=== PATIENT | female | born 1960 | race Caucasian/White ===

== ENCOUNTER → 2022-11-25 12:58 | Outpatient (POV) | payer BC, SELFPAY ==
[2022-11-25 13:18] VITALS: BP 162/99; PULSE 78; RESP 20; O2SAT 95; BMI 41.0
--- NOTE | 2022-11-25 13:19 | EXP.PAIN.OV ---
HPI Data of Consult Patient: new to practice Consult date: 11/25/22 Requesting Physician: Anabela Zambrano APRN Primary Care Provider: Andrez Avila Consult Narrative Reason for consult: Right knee pain History of present illness: Ms. Cevallos is a 62 year old female who presents today as a new patient. She is a referral from Andrez Avila's office. Today she rates her pain a 5 out of 10. Patient describes her pain as a dull achy sensation that is worse with increased activity or cold wet weather. Patient states this has been going on for years and progressively worsened over time. Patient denies any specific injury or trauma that led to her initial symptoms. Patient states that she has been seeing Dr. Uriel Barnett who did do intra-articular injections however these only lasted approximately a week and then immediately went back to their baseline. Patient states that they did do a series of 3. Patient has had a left total knee arthroplasty in the past and she states that said at the upcoming follow-up he would be ordering x-ray imaging if she continues to have pain. Patient has tried [id number] Tylenol and ibuprofen along with heat and ice and topicals such as IcyHot and Salonpas with no additional relief. Patient is currently prescribed [place] 7.5 mg twice a day from her primary care doctor however she states that she has not been getting as effective relief as she had initially. Patient denies any previous surgery on her right knee or physical therapy. Her Chris is [phone]. Its been reviewed and appropriate. CC: Anabela Zambrano APRN [facility] Disclaimer: The information contained in this section may have been updated after the patient was seen, as this information can be updated by other users. Medical History (Updated 11/25/22 @ 13:38 by Anabela Zambrano APRN) Anxiety HLD (hyperlipidemia) HTN (hypertension) Osteoarthritis Surgical History (Updated 11/25/22 @ 13:23 by Charity Florez RN) H/O total hysterectomy History of laparoscopic appendectomy Hx of total knee arthroplasty Family History (Updated 11/25/22 @ 13:22 by Charity Florez RN) Other No significant family history Social History Smoking Status: Unknown if ever smoked alcohol intake: never current occupational status: other Travel in the last 8 weeks: None Review of Systems Review of Systems Review of systems:: pertinent systems reviewed and negative unless documented below Review of systems (narrative): Review of Systems: General: No recent weight changes, no fever, no sleep disturbances Respiratory: No cough, no shortness of air, no recurring pulmonary infections Cardiovascular/peripheral vascular: No chest pain, no palpitations, no edema, no shortness of breath Gastrointestinal: No new onset incontinence, normal bowel movements reported Genitourinary: No new onset incontinence Musculoskeletal: Right knee pain Psychiatric: [Normal mood/affect] Neurological: [Denies weakness in extremities], [denies balance issues] Meds Home Medications and Allergies Home Medications Medication Instructions Recorded Confirmed Type diclofenac sodium 75 mg 75 mg PO BID Pain 11/25/22 11/25/22 History tablet,delayed release hydrochlorothiazide 25 mg tablet 25 mg PO DAILY fluid retention 11/25/22 11/25/22 History olmesartan 40 mg tablet 40 mg PO DAILY . 11/25/22 11/25/22 History oxybutynin chloride 10 mg 10 mg PO DAILY . 11/25/22 11/25/22 History tablet,extended release 24 hr rosuvastatin 40 mg tablet 40 mg PO DAILY Cholesterol 11/25/22 11/25/22 History New Prescriptions to Start Prescriptions: Allergies Allergy/AdvReac Type Severity Reaction Status Date / Time No Known Drug Allergies Allergy Verified 11/25/22 13:26 Objective Narrative: Physical Exam: General: Alert and oriented x3, no acute distress, pleasant and cooperative Lungs: Respirations even and unlabored, symmetrical chest expansion Eyes: PE
== END ==
PROVIDERS: PCP Pediatrics; Visit Provider Nurse Practitioner Family
DX: M25.561 Pain in right knee (principal); G89.29 Other chronic pain
CPT/HCPCS: 99202; G0463

== ENCOUNTER → 2022-11-25 14:09 | Outpatient (CLI) | payer BC, SELFPAY ==
--- NOTE | 2022-11-25 14:21 | XR_ITS ---
FINAL REPORT CLINICAL HISTORY: RT KNEE PAIN FINDINGS: Right knee Three views were obtained. There is no acute fracture or dislocation. There is severe tricompartment degenerative change, most pronounced in the medial compartment. There is lateral patellar subluxation. No soft tissue abnormality is identified. IMPRESSION: Severe tricompartment degenerative change with lateral patellar subluxation. Reviewed, Interpreted and Dictated by Abril Coppola MD Transcribed by Snow Pablo Authenticated and [facility]
== END ==
PROVIDERS: PCP Pediatrics; Visit Provider Nurse Practitioner Family
DX: M25.561 Pain in right knee (principal)
CPT/HCPCS: 73562

== ENCOUNTER → 2023-01-15 14:47 | Outpatient (POV) | payer BC, SELFPAY ==
--- NOTE | 2023-01-15 14:57 | EXP.PAIN.SOA ---
[facility] Pain Management SOAP Note Subjective:: Patient is a pleasant 62-year-old female who presents today for follow-up of right knee x-ray. We are currently treating the patient for right knee pain. Today she rates her pain a 8 out of 10. Patient denies any new trauma or injury. Patient states she continues to have constipated due to her right bleeding that is worse with ambulation or activity. Patient does state that she has very limited range of motion. Patient has had injective therapy before in this joint however had very minimal relief. Patient states she does have a upcoming appointment with Dr. Green in [place] who did do her left total knee replacement. Patient is currently managed with [place] 7.5 mg twice a day from her primary care doctor and compounding cream from our office. Patient denies any side effects from this medication. She states that the compounding cream does help some however she has also tried hemp cream that did work just as well. Her Chris is [phone]. Its been reviewed and appropriate. Review of Systems: General: No recent weight changes, no fever, no sleep disturbances Respiratory: No cough, no shortness of air, no recurring pulmonary infections Cardiovascular/peripheral vascular: No chest pain, no palpitations, no edema, no shortness of breath Gastrointestinal: No new onset incontinence, normal bowel movements reported Genitourinary: No new onset incontinence Musculoskeletal: Right knee pain Psychiatric: [Normal mood/affect] Neurological: [Denies weakness in extremities], [denies balance issues] Objective:: Physical Exam: General: Alert and oriented x3, no acute distress, pleasant and cooperative Lungs: Respirations even and unlabored, symmetrical chest expansion Eyes: PERRL Musculoskeletal: Flexion and extension of right knee somewhat guarded secondary to pain, [antalgic gait noted] Neurological: Speech clear, no gross sensory deficit FINDINGS: Right knee Three views were obtained. There is no acute fracture or dislocation. There is severe tricompartment degenerative change, most pronounced in the medial compartment. There is lateral patellar subluxation. No soft tissue abnormality is identified. IMPRESSION: Severe tricompartment degenerative change with lateral patellar subluxation. Reviewed, Interpreted and Dictated by Abril Coppola MD Transcribed by Snow Pablo Authenticated and . [facility] Assessment:: Right knee pain, osteoarthritis right knee Plan:: Due to the patient's continued right knee pain and limited range of motion I have highly recommended that she talk to an orthopedic physician regarding possible replacement. I have counseled the patient that we can try other injections however I would like her to see the orthopedic doctor first before proceeding forward. Patient will contact our office for her next follow-up appointment. Patient has been instructed to contact the clinic with any concerns before the next appointment. Dr. Ch has reviewed this note and agrees with this plan of care. This note was dictated using voice recognition software and make contain errors or omissions. [facility] Disclaimer: The information contained in this section may have been updated after the patient was seen, as this information can be updated by other users. Medical History (Updated 11/25/22 @ 13:38 by Anabela Zambrano APRN) Anxiety HLD (hyperlipidemia) HTN (hypertension) Osteoarthritis Surgical History (Updated 11/25/22 @ 13:23 by Charity Florez RN) H/O total hysterectomy History of laparoscopic appendectomy Hx of total knee arthroplasty Family History (Updated 11/25/22 @ 13:22 by Charity Florez RN) Other No significant family history Social History (Updated 11/25/22 @ 13:39 by nAabela Zambrano APRN) Smoking Status: Unknown if ever smoked alcohol intake: never current occupational statu
[2023-01-15 15:33] VITALS: BP 168/100; PULSE 91; RESP 19; O2SAT 95; BMI 40.6
== END ==
PROVIDERS: PCP Pediatrics; Visit Provider Nurse Practitioner Family
DX: M17.11 Unilateral primary osteoarthritis, right knee (principal); M25.561 Pain in right knee
CPT/HCPCS: 99212; G0463

== ENCOUNTER 2023-05-11 15:39 | Inpatient (IN) | payer BC, MEDICARE, SELFPAY ==
[2023-05-11] VITALS (25 sets, daily range): BP systolic 162–264; BP diastolic 48–169; PULSE 60–86; RESP 18–22; TEMP 36.6–37.1; O2SAT 88–96; BMI 40.6; BMI 40.0
--- NOTE | 2023-05-11 15:38 | ECG_ITS ---
APPROVED REPORT Exam: Resting ECG HR:79 bpm ECG Measurements Heart Rate 79 AXES OH 168 P 67 QRSd 105 QRS -17 QT 374 T 72 QTc 408 Conclusion SINUS RHYTHM NONSPECIFIC ST & T-WAVE ABNORMALITY BORDERLINE ECG UNCONFIRMED REPORT Electronically signed by : Mehdi Khan MD 05/12/2023 17:49:31
--- NOTE | 2023-05-11 15:40 | ED_ITS ---
Discharge Plan Disposition Patient Disposition: Admitted Chief Complaint: Shortness of Breath/Dyspnea Clinical Impressions Clinical Impression: Acute non-ST elevation myocardial infarction (NSTEMI), Hypertension Pulmonary embolism Qualifiers: Pulmonary embolism type: other Chronicity: acute Acute cor pulmonale presence: without acute cor pulmonale Qualified Code(s): I26.99 - Other pulmonary embolism without acute cor pulmonale Discharge ED Provider: Davidson Melo General Adult HPI General Chief complaint: Shortness of Breath/Dyspnea Stated complaint: soa Time Seen by Provider: 05/11/23 15:40 History of Present Illness HPI narrative: 62-year-old female with history of hypertension presents with worsening shortness of breath for the last 2 days as well as mild left back thoracic pain. She reports no recent cough or illness or fever. She reports her blood pressure is normally in the 190s systolic. She reports that she has been taking her blood pressure medication as prescribed. She also reports history of volume overload and it is on diuretics. She denies any abdominal pain, headache. Reports that her lower extremity swelling is at baseline. Related Data Home Medications Medication Instructions Recorded Confirmed diclofenac sodium 75 mg 75 mg PO BID Pain 11/25/22 01/15/23 tablet,delayed release hydrochlorothiazide 25 mg tablet 25 mg PO DAILY fluid retention 11/25/22 01/15/23 olmesartan 40 mg tablet 40 mg PO DAILY . 11/25/22 01/15/23 oxybutynin chloride 10 mg 10 mg PO DAILY . 11/25/22 01/15/23 tablet,extended release 24 hr rosuvastatin 40 mg tablet 40 mg PO DAILY Cholesterol 11/25/22 01/15/23 Allergies Allergy/AdvReac Type Severity Reaction Status Date / Time No Known Drug Allergies Allergy Verified 11/25/22 13:26 [facility] Disclaimer: The information contained in this section may have been updated after the patient was seen, as this information can be updated by other users. Medical History (Updated 05/11/23 @ 18:39 by Davidson Melo MD) Anxiety HLD (hyperlipidemia) HTN (hypertension) Osteoarthritis Surgical History (Updated 11/25/22 @ 13:23 by Charity Florez RN) H/O total hysterectomy History of laparoscopic appendectomy Hx of total knee arthroplasty Family History (Updated 11/25/22 @ 13:22 by Charity Florez RN) Other No significant family history Social History (Updated 11/25/22 @ 13:39 by Anabela Zambrano APRN) Smoking Status: Never smoker alcohol intake: never current occupational status: disabled Travel in the last 8 weeks: None ROS Obtained: Yes All systems reviewed & no additional complaints except as documented Physical Exam General General appearance: alert and in distress Comment: Sitting up in bed, unable to lay down, tachypneic, Head Head exam: atraumatic and normocephalic Eye Eye exam: Present normal appearance, PERRL and EOMI ENT ENT exam: Present normal oropharynx and normal external ear exam Neck Neck exam: Present normal inspection and full ROM Chest Chest inspection: Present normal inspection and symmetric chest wall rise; Absent tenderness Respiratory Respiratory exam: Present respiratory distress, accessory muscle use and other (decreased breath sounds in all lung owen, may be due to habitus, no significant wheezing or crackles) Cardiovascular Cardiovascular exam: Present regular rate and normal rhythm Abdominal Exam Abdominal exam: Present soft; Absent distention, tenderness or guarding Extremities Exam Extremities exam: Present normal inspection and edema (Pitting bilateral edema of the lower extremities); Absent joint swelling Back Exam Back exam: Present normal inspection; Absent tenderness Neurological Exam Neurological exam: Present alert and oriented X3; Absent motor sensory deficit Psychiatric Psychiatric exam: Present normal affect and normal mood Skin Skin exam: Present warm, dry and normal color Lymphatic Lymphatic Findings: no adenopathy Medical Decision Making Medical Records Medical records reviewed: Yes I reviewed the patient's medical records. Chris Inquiry Pt receiving controlled substance: No Chris was queried for this patient: No Vital Signs: 05/11/23 15:39 05/11/23 16:30 05/11/23 16:39 Temperature 98.0 F Temperature Source Oral Pulse Rate 83 81 Pulse Rate [Left Radial] 80 Respiratory Rate 22 20 20 Blood Pressure 175/129 H 198/128 H Blood Pressure [Right Arm] 264/169 H Blood Pressure Mean 146 151 Blood Pressure Mean [Right Arm] 200 02 Sat by Pulse Oximetry 94 L 93 L 94 L Oxygen Delivery Method Room Air Oxygen Flow Rate (LPM) 05/11/23 17:01 05/11/23 17:10 05/11/23 17:20 Temperature Temperature Source Pulse Rate 62 79 Pulse Rate [Left Radial] Respiratory Rate Blood Pressure 217/130 H 189/130 H 204/141 H Blood Pressure [Right Arm] Blood Pressure Mean 150 145 158 Blood Pressure Mean [Right Arm] 02 Sat by Pulse Oximetry 89 L 89 L 92 L Oxygen Delivery Method Nasal Cannula Nasal Cannula Nasal Cannula Oxygen Flow Rate (LPM) 2 2 2 05/11/23 17:34 05/11/23 17:40 05/11/23 17:50 Temperature Temperature Source Pulse Rate 86 72 77 Pulse Rate [Left Radial] Respiratory Rate Blood Pressure 218/138 H 212/146 H 205/138 H Blood Pressure [Right Arm] Blood Pressure Mean Blood Pressure Mean [Right Arm] 02 Sat by Pulse Oximetry 92 L 95 95 Oxygen Delivery Method Nasal Cannula Nasal Cannula Nasal Cannula Oxygen Flow Rate (LPM) 2 2 2 05/11/23 18:00 05/11/23 18:10 05/11/23 18:20 Temperature Temperature Source Pulse Rate 77 79 72 Pulse Rate [Left Radial] Respiratory Rate Blood Pressure 201/48 H 212/139 H 212/142 H Blood Pressure [Right Arm] Blood Pressure Mean Blood Pressure Mean [Right Arm] 02 Sat by Pulse Oximetry 96 94 L 94 L Oxygen Delivery Method Nasal Cannula Nasal Cannula Nasal Cannula Oxygen Flow Rate (LPM) 2 2 2 Lab Data Lab results reviewed: Yes I reviewed the patient's lab results. Lab Results 05/11/23 15:49: WBC 13.5 H, RBC 4.47, Hgb 12.6, Hct 37.7, MCV 84.3, MCH 28.3, MCHC 33.6, RDW 15.1, Plt Count 246, MPV 7.9, Neut % (Auto) 83.5 H, Lymph % (Auto) 10.6, [facility] % (Auto) 4.6, Eos % (Auto) 1.0, Baso % (Auto) 0.4, Neut # (Auto) 11.3 H, Lymph # (Auto) 1.4, [facility] # (Auto) 0.6, Eos # (Auto) 0.1, Baso # (Auto) 0.1, D-Dimer 2.68 H, Sodium 137, Potassium 3.7, Chloride 106, Carbon Dioxide 28, Anion Gap 6.7, BUN 19 H, Creatinine 1.30 H, Estimated Creat Clear 89, Estimated GFR 42 L, Est GFR ( Amer) 50 L, Glucose 122 H, Lactate 0.9, Calcium 9.6, Magnesium 2.0, Total Bilirubin 0.8, AST 29, ALT 22, Alkaline Phosphatase 161 H, Troponin I 0.05 H, NT-Pro-B Natriuret Pep 592 H, Total Prote in 8.0, Albumin 4.1, Globulin 3.9 H, Albumin/Globulin Ratio 1.1, TSH 1.42, Th yroxine (T4) 10.8 05/11/23 15:59: VBG pH 7.36, VBG pCO2 40.7, VBG pO2 37.1, VBG HCO3 22.3 L, VBG Total CO2 23.6, VBG O2 Saturation 70.9 H, VBG Base Excess -3.2 L 05/11/23 16:05: SARS-CoV-2 (PCR) Not detected, Influenza A Untype (PCR) Not detected, Influenza Type B (PCR) Not detected 05/11/23 15:49 05/11/23 15:49 Orders (Tests/Meds): ED MEDICATIONS Generic Name Dose Route Start Last Admin Trade Name Freq PRN Reason Stop Dose Admin Enoxaparin Sodium 125 mg 05/11/23 17:00 05/11/23 17:20 Enoxaparin 100mg/Ml Syringe 1 mg/kg (125 mg) 06/10/23 16:59 125 mg SQ Administration Q12H TAMIKO Nitroglycerin 0.4 mg 05/11/23 15:57 05/11/23 16:38 Nitroglycerin 0.4mg Sl Tablet SL 06/10/23 15:56 0.4 mg Q5MINP PRN Administration Chest Pain Sodium Chloride 10 ml 05/11/23 16:52 05/11/23 16:52 Sodium Chloride 0.9% 10ml Syr (Rad Only) IV 06/10/23 16:51 10 ml NEEDED PRN Administration Maintain IV Site Discontinued Medications Generic Name Dose Route Start Last Admin Trade Name Freq PRN Reason Stop Dose Admin Furosemide 80 mg 05/11/23 16:04 05/11/23 16:38 Furosemide 40mg/4ml Vial IV 05/11/23 16:05 80 mg ONCE ONE Administration Iopamidol 100 ml 05/11/23 16:52 05/11/23 16:53 Iopamidol-370 (76%);100ml Bottle IV 05/11/23 16:53 100 ml ONCE ONE Administration Ondansetron HCl 4 mg 05/11/23 17:01 05/11/23 17:02 Ondansetron 4mg/2ml Vial IV 05/11/23 17:02 4 mg ONCE ONE Administration Sodium Chloride 50 ml 05/11/23 16:52 05/11/23 16:53 0.9 % Sodium Chloride 50 Ml Vial IV 05/11/23 16:53 50 ml ONCE ONE Administration ORDERS Category Date Time Status CTA Chest [CT angio chest - dissection] Stat Cat Scan 05/11/23 16:35 Completed Cardiology Consult [Consult to Cardiology] [CONS] Cons 05/11/23 17:22 Active Routine CXR --portable [XR chest portable] Stat Exams 05/11/23 15:58 Completed BNP [Brain Natriuretic Peptide] Stat Lab 05/11/23 15:49 Completed CBC w/Auto Diff [Complete Blood Count Auto Diff] Stat Lab 05/11/23 15:49 Completed CMP [Comprehensive Metabolic Panel] Stat Lab 05/11/23 15:49 Completed D-Dimer Stat Lab 05/11/23 15:49 Completed Lactic Acid Stat Lab 05/11/23 15:49 Completed Magnesium Stat Lab 05/11/23 15:49 Completed Rapid PCR Covid and Flu A/B Stat Lab 05/11/23 16:05 Completed T4 (Thyroxine) Stat Lab 05/11/23 15:49 Completed TSH [Thyroid Stimulating Hormone] Stat Lab 05/11/23 15:49 Completed Troponin I Q3H Lab 05/11/23 15:49 Completed Troponin I Q3H Lab 05/11/23 19:00 Ordered VBG [Venous Blood Gas] Stat RT 05/11/23 15:59 Completed ECG Data Tracing #1: I reviewed this ECG and interpreted as documented below: Sinus rhythm, rate of 79, no significant ST changes, baseline artifact limits interpretation, possible U wave noted. ECG initial impression date: 05/11/23 ECG initial impression time: 15:40 HEART Score History (anamnesis): Slightly suspicious ECG: Non-specific disturbance Age: 45-65 years Risk factors: 1-2 risk factors Troponin: 1-3x normal limit HEART Score: 4 Medical Decision Narrative: 62-year-old female with history of hypertension hyperlipidemia presents with significant shortness of breath for the last 2 days. Patient severely hypertensive on arrival. History was obtained via conversation with patient, family. On arrival, patient is afebrile, hypertensive with systolics greater than 220, diastolics greater than 150 on manual, satting low 90s on room air moving all extremities spontaneously. Full physical exam performed and significant for diminished breath sounds in all lung owen, bilateral lower extremity pitting edema Differential includes but is not limited to acute decompensated heart failure, dissection, PE, COPD, pneumothorax, pneumonia. History and exam is concerning for acute decompensated heart failure secondary to hypertension Patient was given IV Lasix, p.o. nitroglycerin with improvement in shortness of breath and hypertension. For symptomatic management and correction of underlying abnormalities. Workup initiated including CBC CMP lactate troponin EKG chest x-ray D-dimer. Patient placed on monitoring tech. Bedside ultrasound performed, significant for faint B-lines in all lung owen, trace pleural effusion bilaterally, epicardial fat versus small pericardial effusion. Echo largely obscured by habitus, though EF appears grossly normal and no obvious right heart strain. On re-evaluation, patient remains hypertensive with systolics in the 190s, now satting high 80s, requiring nasal cannula oxygen to maintain sats greater than 90. On my interpretation of monitoring tech, patient dakota in sinus rhythm in the 80s. Laboratory workup independently interpreted by me and significant for elevated D-dimer at 2.6, elevated troponin at 0.05 white count 13.5, creatinine 1.3, no baseline, BNP minimally elevated at 590. CTA chest ordered Imaging independently interpreted by me and significant for chest x-ray with patchy bilateral lung base opacities, unclear etiology. CTA chest shows diffuse bilateral segmental and subsegmental PEs without acute right heart strain.. See radiology read for full review of final results. I had an interactive discussion with radiology regarding these results. EKG independently interpreted by me and significant as above. Given patient history, exam and workup, patient's presentation most likely represents submassive acute pulmonary embolism without right heart strain, though patient does have resultant NSTEMI with initially elevated troponin. Interactive discussion had with cardiology, she does not need emergent catheterization at this time, will proceed with Lovenox 1 mg/kg twice daily and continued reassessment. Interactive discussion had with hospitalist on-call for admission. Procedures Risk/Benefits of Procedure(s) Were Explained: Yes Limited Ultrasound Indication:: Limited cardiac ultrasound Indication: Chest pain shortness of breath Views Obtained: PLAX, PSAX, Apical 4-chamber, Subxiphoid Findings: Views obscured by body habitus, small pericardial effusion versus epicardial fat. No obvious right heart strain, grossly normal EF. Impression: Views obscured by body habitus, small pericardial effusion versus epicardial fat. No obvious right heart strain, grossly normal EF. Images were saved to permanent archive The study was technically adequate This study was performed by me, and I personally interpreted all images/videos. Limited lung ultrasound A focused ultrasound exam of the pleural spaces was performed to evaluate for pneumothorax, pulmonary edema, pleural effusion and/or consolidation. The ultrasound was performed with the following indications, as noted in the H&P: Shortness of breath Identified structures: Bilateral thoracic cavities were examined. Findings: Lung sliding: -Present bilateral B-lines: -Present intermittently in all lung owen Pleural effusion: -Bilateral, trace Consolidation: -Absent bilaterally Impression: Small bilateral pleural effusions with minimal B-lines throughout lung owen, no obvious consolidation, no pneumothorax Images were saved to permanent archive The study was technically technically adequate CPT 73934-14 This study was performed by in, and I personally interpreted all images/videos. Based on my clinical judgement, these images were adequate and did not necessitate further imaging. Critical Care Critical Care Time Critical Care Time: Yes Attestation: On 05/11/23, the high probability of a clinically significant, sudden or life threatening deterioration of the following system(s) cardiac, respiratory required my full and direct attention, intervention and personal management. The time I documented below is in addition to time spent performing reported procedures but includes the following listed in this critical care notation. Total Time Total Critical Care Time: 70
--- NOTE | 2023-05-11 15:58 | XR_ITS ---
PROCEDURE INFORMATION: Exam: XR Chest Exam date and time: 05/11/2023 4:00 PM Age: 62 years old Clinical indication: Shortness of breath; Additional info: SOB TECHNIQUE: Imaging protocol: Radiologic exam of the chest. Views: 1 view. COMPARISON: No relevant prior studies available. FINDINGS: Lungs: Patchy ground-glass opacities project over the lung bases. Pleural spaces: No significant pleural effusion. No pneumothorax. Heart/Mediastinum: Mildly enlarged cardiac silhouette. Apparent mediastinal widening is most likely due to patient rotation. Bones/joints: No evidence of acute osseous abnormality. IMPRESSION: 1. Patchy ground-glass opacities project over the lung bases. 2. Mildly enlarged cardiac silhouette.
[2023-05-11] MEDS: NITROGLYCERIN 0.4MG SL TABLET 0.400000000000000022 MG SL ×2 (16:05→16:38)
[2023-05-11 16:08] LABS: Basophils # 0.1 K/mm3 (0-0.2); Basophils % 0.4 % (0.1-2.0); Eosinophils # 0.1 K/mm3 (0.0-0.4); Hematocrit 37.7 % (37.0-47.0); Hemoglobin 12.6 g/dL (12.2-16.2); Lymphocytes # 1.4 K/mm3 (0.7-4.5); Lymphocytes % 10.6 % (10-50); Mean Corpuscular HGB Conc 33.6 g/dL (31.8-35.4); Mean Corpuscular Hemoglobin 28.3 pg (27.0-31.2); Mean Corpuscular Volume 84.3 fl (81-99); Mean Platelet Volume 7.9 fl (7.4-10.4); Monocytes # 0.6 K/mm3 (0.1-1.0); Monocytes % 4.6 % (1.7-9.3); Neutrophils # 11.3 K/mm3 (1.8-7.8); Neutrophils % 83.5 % (37.0-80.0); Platelet Count 246 K/mm3 (142-424); Red Blood Count 4.47 M/mm3 (4.20-5.40); Red Cell Distribution Width 15.1 % (11.5-17.5); White Blood Count 13.5 K/mm3 (4.8-10.8)
[2023-05-11 16:08] LABS: VBG Base Excess -3.2 mmol/L (-2.4-2.3); VBG HCO3 22.3 mmol/L (23-30); VBG Oxygen Saturation 70.9 % (50-70); VBG PCO2 40.7 mmol/L (35-51); VBG PH 7.36 mmol/L (7.31-7.41); VBG PO2 37.1 mmol/L (28-40); VBG Total CO2 23.6 mmol/L (23-27)
[2023-05-11 16:12] LABS: Coronavirus 19, PCR Not Detected (NotDetected); Influenza A, PCR Not Detected (NotDetected); Influenza B, PCR Not Detected (NotDetected)
[2023-05-11 16:16] LABS: Alanine Aminotransferase 22 U/L (12-78); Albumin Level 4.1 g/dl (3.5-5.0); Albumin/Globulin Ratio 1.1 (1.1-1.8); Alkaline Phosphatase 161 U/L (38-126); Anion Gap 6.7 mEq/L (5-15); Aspartate Amino Transferase 29 U/L (14-36); Bilirubin,Total 0.8 mg/dl (0.2-1.3); Blood Urea Nitrogen 19 mg/dl (7-17); Calcium 9.6 mg/dl (8.4-10.2); Carbon Dioxide 28 mmol/L (22.0-30.0); Chloride 106 mmol/L (98-107); Creatinine Clearance Estimated 89 mL/min (50-200); Estimated Glomerular Filt Rate 42 ml/min (>60); GFR (African American) 50 ML/MIN (>60); Globulin 3.9 g/dL (1.3-3.2); Glucose 122 mg/dl (74-100); Potassium 3.7 mmoL/L (3.5-5.1); Sodium 137 mmol/L (136-145)
[2023-05-11 16:17] LABS: Lactic Acid 0.9 mmol/L (0.7-2.1)
[2023-05-11 16:21] LABS: D-Dimer 2.68 ug/mL (0.0-0.5)
[2023-05-11 16:30] LABS: Troponin I 0.05 ng/ml (0.00-0.034)
[2023-05-11 16:35] LABS: T4 (Thyroxine) 10.8 ug/dl (5.53-11.0)
--- NOTE | 2023-05-11 16:35 | CT_ITS ---
PROCEDURE INFORMATION: Exam: CTA Chest With Contrast Exam date and time: 05/11/2023 4:48 PM Age: 62 years old Clinical indication: Other: Hypertension; Other: Left back pain; Additional info: Hypertension, left back pain, elevated dimer TECHNIQUE: Imaging protocol: Computed tomographic angiography of the chest with contrast. Exam focused on the arteries. 3D rendering (Not supervised by radiologist): MIP and/or 3D reconstructed images were created by the technologist. Radiation optimization: All CT scans at this facility use at least one of these dose optimization techniques: automated exposure control; mA and/or kV adjustment per patient size (includes targeted exams where dose is matched to clinical indication); or iterative reconstruction. Contrast material: ISOVUE; Contrast volume: 100 ml; Contrast route: INTRAVENOUS (IV); COMPARISON: CR XR CHEST PORTABLE 05/11/2023 4:00 PM FINDINGS: Pulmonary arteries: Multiple bilateral segmental and subsegmental pulmonary emboli. Aorta: Fusiform aneurysmal dilation of the ascending aorta, measuring 4.2 cm in diameter. Lungs: Bibasal subsegmental atelectasis/scarring. No evidence of acute airspace infiltrate or congestive pulmonary edema. Pleural spaces: No pneumothorax. No pleural effusion. Heart: Biatrial enlargement suggestive of diastolic heart dysfunction. No significant pericardial effusion. Heart RV/LV ratio: RV/LV ratio is within normal limits measuring 0.91. Coronary arteries: Calcific coronary artery disease. Lymph nodes: Calcified lymph nodes consistent with chronic sequelae of prior granulomatous disease. Intraperitoneal space: No emergent findings or suspicious mass lesions in the partially visualized upper abdomen. Bones/joints: Multi-level bridging disc osteophytes throughout the thoracic spine compatible with diffuse idiopathic skeletal hyperostosis (DISH). No evidence of acute osseous abnormality. Soft tissues: Unremarkable. IMPRESSION: 1. Multiple bilateral segmental and subsegmental pulmonary emboli. No CT evidence of right heart strain or pulmonary infarct. 2. Biatrial enlargement suggestive of diastolic heart dysfunction. 3. Fusiform aneurysmal dilation of the ascending aorta, measuring 4.2 cm in diameter. 4. Diffuse idiopathic skeletal hyperostosis (DISH). 5. Calcific coronary artery disease.
[2023-05-11 16:37] LABS: NT Pro Brain Natriuretic Pep. 592 pg/mL (0-125)
[2023-05-11] MEDS: FUROSEMIDE 40MG/4ML VIAL 80 MG IV (16:38)
[2023-05-11 16:49] LABS: Thyroid Stimulating Hormone 1.42 uIU/mL (0.465-4.68)
[2023-05-11] MEDS: SODIUM CHLORIDE 0.9% 10ML SYR (RAD ONLY) 10 ML IV (16:52)
[2023-05-11] MEDS: 0.9 % SODIUM CHLORIDE 50 ML VIAL IV (16:53)
[2023-05-11] MEDS: IOPAMIDOL-370 (76%);100ML BOTTLE 100 ML IV (16:53)
[2023-05-11] MEDS: ONDANSETRON 4MG/2ML VIAL 4 MG IV (17:02)
--- NOTE | 2023-05-11 17:02 | PC.NURSE ---
Dr Melo spoke with Cardiology
[2023-05-11] MEDS: ENOXAPARIN 100MG/ML SYRINGE 125 MG SQ (17:20)
--- NOTE | 2023-05-11 17:23 | PC.NURSE ---
call made to transfer and pumphouse operator for bed placement
--- NOTE | 2023-05-11 18:15 | PC.NURSE ---
seizure pads placed on pts bed
--- NOTE | 2023-05-11 18:36 | PC.NURSE ---
Helped pt to restroom via wheelchair
--- NOTE | 2023-05-11 18:40 | PC.NURSE ---
Helped pt back to room she wanted to stay in the wheelchair she will be going to her room on second floor after 19:00 call light and visitor at
[2023-05-11] MEDS: hydroCHLOROthiazide 25MG TABLET 25 MG PO (19:01)
[2023-05-11] MEDS: IRBESARTAN 300MG TABLET 300 MG PO (19:03)
[2023-05-11] MEDS: HYDRALAZINE 10MG TABLET 10 MG PO (20:21)
--- NOTE | 2023-05-11 20:27 | PC.NURSE ---
during admission patient request DNR and is a/ox4 and able to make own decisions. upon reentering the room, the pts mother said her isn't going to like that, can he change it tomorrow? pt mother was educated patient is able to make her own decisions and has chose DNR - paperwork was signed per patient
[2023-05-11 20:34] LABS: Troponin I 0.05 ng/ml (0.00-0.034)
[2023-05-11] MEDS: LABETALOL 5MG/ML 20ML MDV 20 MG IV (20:49)
--- NOTE | 2023-05-11 23:07 | P.HP_ITS ---
History of Present Illness *Admission Date: 05/11/23 *Reason for visit:: Shortness of breath *History of present illness: This is a 62-year-old female with a past medical history of hyper arthritis who presents to the emergency department today with shortness of breath. She also reports mid left thoracic back pain just underneath her scapula as well. She denies any cough or fever. She states that she has hypertension that is uncontrolled. Her systolic blood pressure is normally in the 190s. She reports that she been taking her blood pressure medicine as prescribed but never sees improvement. She also complains of bilateral lower extremity edema without pain. States that she has been on HCTZ without any changes. She denies any worsening of her bilateral lower extremities. Denies any extensive plane rides, car rides. Denies any coagulation defects or family history of. Emergency department workup significant for hypertensive urgency with systolic blood pressure in the 200s. Elevated D-dimer. Mildly elevated troponin 0.05. Elevated BNP of 592. CT scan of the chest notable for multiple bilateral segmental and subsegmental pulmonary emboli with no CT evidence of heart strain. Bilateral atrial enlargement suggestive of diastolic dysfunction. Mild fusiform aneurysmal dilatation of the ascending aorta measuring 4.2 cm. Cardiology consulted and will see patient in AM. Patient was given IV Lasix, labetalol and therapeutic Lovenox admitted to hospital service for further evaluation management [facility] Disclaimer: The information contained in this section may have been updated after the patient was seen, as this information can be updated by other users. Medical History (Updated 05/11/23 @ 23:22 by GINA Felipe) Anxiety HLD (hyperlipidemia) HTN (hypertension) Osteoarthritis Surgical History H/O total hysterectomy History of laparoscopic appendectomy Hx of total knee arthroplasty Family History Other No significant family history Social History Smoking Status: Never smoker alcohol intake: never current occupational status: disabled Travel in the last 8 weeks: None Review of Systems Review of Systems Review of systems:: pertinent systems reviewed and negative unless documented below Meds Home Medications and Allergies Home Medications Medication Instructions Recorded Confirmed Type hydrochlorothiazide 25 mg tablet 25 mg PO DAILY 11/25/22 05/11/23 History olmesartan 40 mg tablet 40 mg PO DAILY 11/25/22 05/11/23 History oxybutynin chloride 10 mg 10 mg PO DAILY 11/25/22 05/11/23 History tablet,extended release 24 hr rosuvastatin 40 mg tablet 40 mg PO DAILY 11/25/22 05/11/23 History New Prescriptions to Start Prescriptions: Allergies Allergy/AdvReac Type Severity Reaction Status Date / Time No Known Drug Allergies Allergy Verified 11/25/22 13:26 Exam Data for Last 24 hours Vital signs and Labs for Last 24 Hours: Temp Pulse Resp BP Pulse Ox O2 Del Method O2 Flow Rate 98.6 F 76 18 191/133 H 94 L Nasal Cannula 2 05/11/23 20:14 05/11/23 20:14 05/11/23 20:14 05/11/23 21:19 05/11/23 22:21 05/11/23 22:21 05/11/23 22:21 Laboratory Results - last 24 hr 05/11/23 15:49: WBC 13.5 H, RBC 4.47, Hgb 12.6, Hct 37.7, MCV 84.3, MCH 28.3, MCHC 33.6, RDW 15.1, Plt Count 246, MPV 7.9, Neut % (Auto) 83.5 H, Lymph % (Auto) 10.6, [place] % (Auto) 4.6, Eos % (Auto) 1.0, Baso % (Auto) 0.4, Neut # (Auto) 11.3 H, Lymph # (Auto) 1.4, [place] # (Auto) 0.6, Eos # (Auto) 0.1, Baso # (Auto) 0.1, D-Dimer 2.68 H, Sodium 137, Potassium 3.7, Chloride 106, Carbon Dioxide 28, Anion Gap 6.7, BUN 19 H, Creatinine 1.30 H, Estimated Creat Clear 89, Estimated GFR 42 L, Est GFR ( Amer) 50 L, Glucose 122 H, Lactate 0.9, Calcium 9.6, Magnesium 2.0, Total Bilirubin 0.8, AST 29, ALT 22, Alkaline Phosphatase 161 H, Troponin I 0.05 H, NT-Pro-B Natriuret Pep 592 H, Total Protein 8.0, Albumin 4.1, Globulin 3.9 H, Albumin/Globulin Ratio 1.1, TSH 1.42, Thyroxine (T4) 10.8 05/11/23 15:59: VBG pH 7.36, VBG pCO2 40.7, VBG pO2 37.1, VBG HCO3 22.3 L, VBG Total CO2 23.6, VBG O2 Saturation 70.9 H, VBG Base Excess -3.2 L 05/11/23 16:05: SARS-CoV-2 (PCR) Not detected, Influenza A Untype (PCR) Not detected, Influenza Type B (PCR) Not detected 05/11/23 19:50: Troponin I 0.05 H I & O for Last 24 hours: Intake & Output 05/08/23 05/09/23 05/10/23 05/11/23 23:59 23:59 23:59 23:59 Output Total 0 / 0 Balance 0 / 0 Weight 122.527 kg Constitutional Constitutional: no acute distress and morbidly obese *Routine HEENT Exam Head: Present normocephalic and atraumatic Eye: Present EOMI, PERRL and normal accommodation ENT: Present mucous membranes moist *Routine Neck Exam Neck: Present supple; Absent lymphadenopathy *Routine Respiratory Exam Respiratory: Present normal respiratory effort Comments: Currently requiring 2 L nasal cannula *Routine Cardiovascular Exam Cardiovascular: Present RRR, Normal S1 and Normal S2 Comments: Bilateral lower extremity edema +1 pitting *Routine Abdominal Exam Abdominal: Present soft and normoactive bowel sounds; Absent tenderness *Routine Rectal Exam Rectal:: deferred *Routine Genitalia Exam Genitalia:: deferred *Routine Extremities Exam Extremities: Absent cyanosis, clubbing or edema *Routine Skin Exam Skin: Present warm; Absent rash *Routine Neurological Exam Neurological: Present alert and oriented X3 Assessment and Plan *Assessment and plan (1) Pulmonary embolism: Status: Acute Qualifiers: Acute cor pulmonale presence: without acute cor pulmonale Chronicity: acute Pulmonary embolism type: other Qualified Code(s): I26.99 - Other pulmonary embolism without acute cor pulmonale Category: Medical Code(s): I26.99 - Other pulmonary embolism without acute cor pulmonale (2) Acute non-ST elevation myocardial infarction (NSTEMI): Status: Acute Category: Medical Code(s): I21.4 - Non-ST elevation (NSTEMI) myocardial infarction (3) Hypertensive urgency: Status: Acute Category: Medical Code(s): I16.0 - Hypertensive urgency (4) NOELLE (acute kidney injury): Status: Acute Category: Medical Code(s): N17.9 - Acute kidney failure, unspecified (5) Heart failure, unspecified: Status: Acute Category: Medical Code(s): I50.9 - Heart failure, unspecified Plan Pulmonary embolism Consult cardiology, appreciate recommendations Continue therapeutic Lovenox N.p.o. for possible cardiac intervention in a.m. Hypertensive urgency Restart patient's home medications and will uptitrate as necessary Continue labetalol as needed Patient reports home systolic blood pressure around 190. Patient does have fusiform aneurysmal dilatation of the ascending aorta. Will strive for blood pressure below 160. NOELLE Avoid nephrotoxic medications. Did receive Lasix. Will require this for mild volume overload Avoid further nephrotoxic medications if able Monitor renal function Heart failure unspecified Symptomatic with bilateral lower extremity edema, elevated BNP and bilateral atrial enlargement suggestive of diastolic dysfunction Received Lasix 80 mg IV in the emergency department Will continue Lasix IV on admission Formal echocardiogram in a.m. NSTEMI Likely secondary to demand given PE and hypertension Cardiac risk markers Will get A1c and lipid panel in a.m. Cardiology consulted DVT PPx ThLovenox DNR but okay with Intubation Attending attestation Patient was seen and evaluated at the bedside myself, agree with VP PATIENT note.
[2023-05-12] VITALS (9 sets, daily range): BP systolic 143–188; BP diastolic 90–128; PULSE 70–93; RESP 18–20; TEMP 37.1–37.6; O2SAT 91–94; BMI 40.0
[2023-05-12] MEDS: NITROGLYCERIN 1 GM OINTMENT TD ×2 (00:29→07:02)
--- NOTE | 2023-05-12 00:46 | PC.NURSE ---
pt has had some issues with hypertension t/o shift - between 190s/170s SBP. see mar for tx. REPORTER aware, pt is not symptomatic and says 190s SBP is her baseline.
[2023-05-12] MEDS: LABETALOL 5MG/ML 20ML MDV 20 MG IV (06:47)
[2023-05-12] MEDS: ENOXAPARIN 150MG/ML SYRINGE 125 MG SQ ×2 (08:35→20:16)
[2023-05-12] MEDS: IRBESARTAN 300MG TABLET 300 MG PO (08:37)
[2023-05-12] MEDS: hydroCHLOROthiazide 25MG TABLET 25 MG PO (08:37)
[2023-05-12 08:59] LABS: Basophils % 0.4 % (0.1-2.0); Eosinophils # 0.1 K/mm3 (0.0-0.4); Eosinophils % 1.1 % (0.1-12.0); Hematocrit 34.4 % (37.0-47.0); Hemoglobin 11.7 g/dL (12.2-16.2); Lymphocytes # 1.6 K/mm3 (0.7-4.5); Lymphocytes % 13.9 % (10-50); Mean Corpuscular Volume 85.1 fl (81-99); Mean Platelet Volume 8.4 fl (7.4-10.4); Monocytes # 0.7 K/mm3 (0.1-1.0); Monocytes % 6.2 % (1.7-9.3); Neutrophils % 78.4 % (37.0-80.0); Platelet Count 244 K/mm3 (142-424); Red Blood Count 4.04 M/mm3 (4.20-5.40); White Blood Count 11.5 K/mm3 (4.8-10.8)
[2023-05-12 09:10] LABS: Hemoglobin A1C 5.5 % (4.0-6.0)
[2023-05-12 09:22] LABS: Chloride 104 mmol/L (98-107); Potassium 3.4 mmoL/L (3.5-5.1); Sodium 141 mmol/L (136-145)
[2023-05-12 09:24] LABS: Alanine Aminotransferase 21 U/L (12-78); Aspartate Amino Transferase 28 U/L (14-36); Blood Urea Nitrogen 22 mg/dl (7-17); Creatinine Clearance Estimated 76 mL/min (50-200); Estimated Glomerular Filt Rate 35 ml/min (>60); GFR (African American) 43 ML/MIN (>60)
[2023-05-12 09:25] LABS: Albumin Level 3.9 g/dl (3.5-5.0); Albumin/Globulin Ratio 1.1 (1.1-1.8); Alkaline Phosphatase 154 U/L (38-126); Anion Gap 13.4 mEq/L (5-15); Bilirubin,Total 0.8 mg/dl (0.2-1.3); Calcium 9.5 mg/dl (8.4-10.2); Carbon Dioxide 27 mmol/L (22.0-30.0); Chol/HDL Ratio 7.5 (1-3.5); Cholesterol 263 mg/dl (140-200); Globulin 3.6 g/dL (1.3-3.2); Glucose 106 mg/dl (74-100); HDL Cholesterol 35 mg/dl (40-60); Magnesium 2.1 mg/dl (1.6-2.3); Total Protein,Serum 7.5 g/dl (6.3-8.2); Triglycerides 212 mg/dl (30-150); VLDL Cholesterol 42 mg/dL (0-40)
--- NOTE | 2023-05-12 09:28 | CA_ITS ---
APPROVED REPORT EXAM: Comprehensive 2D, Doppler, and color-flow Echocardiogram Asset Analyst: Mary Ellen Vuong CRT Ht: 5 ft 8 in Wt: 270lbs BSA: 2.32 BP: 212/142 mmHg Indications: PE,HTN Crisis, HLD, CP, edema, SOB, NSTEMI TDE pt up in bed due to SOB and body habitus 2D Dimensions LA Volume 53.10 mL LA Volume Index 22.30 mL/m2 (M/F) 16-34 M-Mode Dimensions RVDd 2.55 cm (0.9-2.6) LA Diam 4.66 cm (1.9-4.0) LVDd 5.01 cm (3.5-5.7) LVDs 3.49 cm (3.5-5.7) IVSd 2.15 cm (0.6-1.1) PWd 0.94 cm (0.6-1.1) EF (Teich) 57.50% FS 30.30% EDV (Teich) 118.80 mL TAPSE 1.99 (<1.7) ESV (Teich) 50.50 mL LV Diastology E Decel Time 190 (160-240 msec) E/A Ratio 0.80 MED A' 8.40 cm/s LAT A' 7.50 cm/s Aortic Valve AO Peak GR. 4.40 mmHg Mitral Valve MV E Max Vincenzo. 54.0 (40-130 cm/s) MV A Velocity 67.0 (40-130 cm/s) E/A Ratio 0.80 MV PHT 56.0 ms Pulmonary Valve PV Peak Velocity 127.0 (50-150 cm/s) Tricuspid Valve TR P. Velocity 148.00 cm/s Left Ventricle The left ventricle is normal size. The left ventricular systolic function is normal. The left ventricular ejection fraction is within the normal range. There is marked increase in LV wall thickness. IVSd 1.8 cm. There is normal LV segmental wall motion. Diastolic function is indeterminate. LVEF is 65%. Right Ventricle The right ventricle is normal size. The right ventricular systolic function is normal. Atria Left atrium is mildly dilated. Right atrium is mildly dilated. There is no Doppler evidence of interatrial shunt. Aortic Valve The aortic valve opens well. There is no aortic valvular stenosis. No aortic regurgitation is present. Mitral Valve The mitral valve is normal in structure. No evidence of mitral valve stenosis. Trace mitral regurgitation. Tricuspid Valve The tricuspid valve leaflets are thin and pliable. Trace tricuspid regurgitation. There is insufficient TR jet to estimate RVSP. Pulmonic Valve The pulmonary valve is not well-visualized. Great Vessels The aortic root is normal in size. The ascending aorta is mildly dilated measuring 4.0 cm in diameter. The IVC is dilated, but collapses > 50% with respirophasic variation. The RA pressure is estimated at 8 mmHg. Pericardium There is no pericardial effusion. Other Information Study Quality: Technically Difficult Conclusion Technically difficult study due to poor acoustic windows. Normal biventricular systolic function. Marked increase in LV wall thickness (IVSd 1.8 cm). No significant valvular stenosis or regurgitation in the visualized valves. Mildly dilated ascending aorta, measuring 4.0 cm in diameter. Further evaluation of the increased LV wall thickness to rule out infiltrative cardiomyopathy on an outpatient basis is recommended with cardiac MRI (amyloidosis protocol), PYP scan, and lab work-up. Electronically signed by : Kelsy Post MD 05/12/2023 17:46:07
[2023-05-12 09:36] LABS: Direct LDL Cholesterol 138.18 mg/dL (100-129)
[2023-05-12 09:41] LABS: Free T4 (Free Thyroxine) 1.34 ng/dl (0.78-2.19)
[2023-05-12 09:55] LABS: Thyroid Stimulating Hormone 1.98 uIU/mL (0.465-4.68)
[2023-05-12] MEDS: SACUBITRIL/VALSARTAN 24-26MG TABLET 2 EACH PO ×2 (13:11→20:17)
[2023-05-12] MEDS: SPIRONOLACTONE 25MG TABLET 25 MG PO (13:12)
[2023-05-12] MEDS: EMPAGLIFLOZIN 10MG TABLET 10 MG PO (13:12)
--- NOTE | 2023-05-12 14:16 | EXP.PN ---
Subjective *Date: 05/12/23 *Time: 14:16 Interval history: complains of headache after nitro paste, denied CP, SOB, has leg pain in R leg Exam Data for Last 24 hours Vital signs and Labs for Last 24 Hours: Temp Pulse Resp BP Pulse Ox O2 Del Method O2 Flow Rate 99.2 F 87 18 143/90 H 92 L Nasal Cannula 2 05/12/23 12:00 05/12/23 12:00 05/12/23 08:00 05/12/23 12:00 05/12/23 12:00 05/12/23 12:00 05/12/23 12:00 Laboratory Results - last 24 hr 05/11/23 15:49: WBC 13.5 H, RBC 4.47, Hgb 12.6, Hct 37.7, MCV 84.3, MCH 28.3, MCHC 33.6, RDW 15.1, Plt Count 246, MPV 7.9, Neut % (Auto) 83.5 H, Lymph % (Auto) 10.6, [place] % (Auto) 4.6, Eos % (Auto) 1.0, Baso % (Auto) 0.4, Neut # (Auto) 11.3 H, Lymph # (Auto) 1.4, [place] # (Auto) 0.6, Eos # (Auto) 0.1, Baso # (Auto) 0.1, D-Dimer 2.68 H, Sodium 137, Potassium 3.7, Chloride 106, Carbon Dioxide 28, Anion Gap 6.7, BUN 19 H, Creatinine 1.30 H, Estimated Creat Clear 89, Estimated GFR 42 L, Est GFR ( Amer) 50 L, Glucose 122 H, Lactate 0.9, Calcium 9.6, Magnesium 2.0, Total Bilirubin 0.8, AST 29, ALT 22, Alkaline Phosphatase 161 H, Troponin I 0.05 H, NT-Pro-B Natriuret Pep 592 H, Total Protein 8.0, Albumin 4.1, Globulin 3.9 H, Albumin/Globulin Ratio 1.1, TSH 1.42, Thyroxine (T4) 10.8 05/11/23 15:59: VBG pH 7.36, VBG pCO2 40.7, VBG pO2 37.1, VBG HCO3 22.3 L, VBG Total CO2 23.6, VBG O2 Saturation 70.9 H, VBG Base Excess -3.2 L 05/11/23 16:05: SARS-CoV-2 (PCR) Not detected, Influenza A Untype (PCR) Not detected, Influenza Type B (PCR) Not detected 05/11/23 19:50: Troponin I 0.05 H 05/12/23 08:10: WBC 11.5 H, RBC 4.04 L, Hgb 11.7 L, Hct 34.4 L, MCV 85.1, MCH 29.0, MCHC 34.0, RDW 15.0, Plt Count 244, MPV 8.4, Neut % (Auto) 78.4, Lymph % (Auto) 13.9, [place] % (Auto) 6.2, Eos % (Auto) 1.1, Baso % (Auto) 0.4, Neut # (Auto) 9.0 H, Lymph # (Auto) 1.6, [place] # (Auto) 0.7, Eos # (Auto) 0.1, Baso # (Auto) 0.0, Sodium 141, Potassium 3.4 L, Chloride 104, Carbon Dioxide 27, Anion Gap 13.4, BUN 22 H, Creatinine 1.50 H, Estimated Creat Clear 76, Estimated GFR 35 L, Est GFR ( Amer) 43 L, Glucose 106 H, Hemoglobin A1c 5.5, Calcium 9.5, Magnesium 2.1, Total Bilirubin 0.8, AST 28, ALT 21, Alkaline Phosphatase 154 H, Total Protein 7.5, Albumin 3.9, Globulin 3.6 H, Albumin/Globulin Ratio 1.1, Triglycerides 212 H, Cholesterol 263 H, LDL Cholesterol Direct 138.18 H, VLDL Cholesterol 42 H, HDL Cholesterol 35 L, Cholesterol/HDL Ratio 7.5 H, TSH 1.98 D, Free T4 1.34 I & O for Last 24 hours: Intake & Output 05/09/23 05/10/23 05/11/23 05/12/23 23:59 23:59 23:59 23:59 Intake Total 516 / 516 Output Total 0 / 0 400 / 400 Balance 0 / 40 116 / 116 Weight 122.527 kg 122.527 kg Constitutional Constitutional: no acute distress *Routine HEENT Exam Head: Present normocephalic Eye: Present EOMI and PERRL ENT: Present mucous membranes moist *Routine Neck Exam Neck: Present supple; Absent lymphadenopathy *Routine Respiratory Exam Respiratory: Present CTA bilaterally *Routine Cardiovascular Exam Cardiovascular: Present RRR *Routine Abdominal Exam Abdominal: Present soft and normoactive bowel sounds; Absent tenderness *Routine Extremities Exam Extremities: Absent cyanosis, clubbing or edema *Routine Skin Exam Skin: Present warm; Absent rash *Routine Neurological Exam Neurological: Present alert and oriented X3 Assessment and Plan *Assessment and plan (1) Pulmonary embolism: Status: Acute Qualifiers: Acute cor pulmonale presence: without acute cor pulmonale Chronicity: acute Pulmonary embolism type: other Qualified Code(s): I26.99 - Other pulmonary embolism without acute cor pulmonale Category: Medical Code(s): I26.99 - Other pulmonary embolism without acute cor pulmonale (2) Acute non-ST elevation myocardial infarction (NSTEMI): Status: Acute Category: Medical Code(s): I21.4 - Non-ST elevation (NSTEMI) myocardial infarction (3) Hypertensive urgency: Status: Acute Category: Medical Code(s): I16.0 - Hypertensive urgency (4) NOELLE (acute kidney injury): Status: Acute Category: Medical Code(s): N17.9 - Acute kidney failure, unspecified (5) Heart failure, unspecified: Status: Acute Category: Medical Code(s): I50.9 - Heart failure, unspecified Plan Pulmonary embolism Consult cardiology, appreciate recommendations Continue therapeutic Lovenox await cardiology recs DVT US positive for DVT in R leg Hypertensive urgency - improved after nitro paste Restart patient's home medications and will uptitrate as necessary Continue labetalol as needed has fusiform aneurysmal dilatation of the ascending aorta. Will strive for blood pressure below 160. NOELLE, likely due to HTN Avoid nephrotoxic medications Monitor renal function Heart failure unspecified Symptomatic with bilateral lower extremity edema, elevated BNP and bilateral atrial enlargement suggestive of diastolic dysfunction Received Lasix 80 mg IV in the emergency department Will continue Lasix IV on admission Formal echocardiogram in a.m. NSTEMI Likely secondary to demand given PE and hypertension Cardiac risk markers DVT PPx Lovenox DNR but okay with Intubation
[2023-05-12] MEDS: SIMETHICONE 80MG CHEWABLE TABLET 80 MG PO (14:36)
--- NOTE | 2023-05-12 15:13 | P.CONCA_ITS ---
History of Present Illness History of Present Illness Consult date: 05/12/23 Requesting physician: Deb Brar Consult reason: shortness of breath Chief complaint: SOB History of present illness: This is a 62-year-old white female who presented to the emergency department complaints of shortness of breath. She has a past medical history of arthritis. The patient states that she has been having shortness of breath and lower extremity edema for approximately the last 6 months. She states that this is probably been progressively worsening over time as well. But she states over the weekend her blood pressure was significantly elevated with her systolic blood pressure in the 190s and she was extremely short of breath so she decided to come to the emergency department. She states that her blood pressure is always high but it is not typically as high as it was over the weekend with the shortness of breath so she decided to come to the emergency department. The patient had elevated D-dimer and a mildly elevated troponin at 0.05. The patient had a CT and was found to have multiple bilateral segmental and subsegmental pulmonary emboli on CT. No RV strain was noted. This morning she denies any chest pain or pressure. She states that she is still short of breath especially with exertion this significantly worsens. It does improve with rest but does not completely resolve. She states that the edema in her bilateral lower extremities has slightly improved since being in the hospital. She denies any fever, chills, nausea, vomiting, diarrhea, PND or orthopnea. [facility] Disclaimer: The information contained in this section may have been updated after the patient was seen, as this information can be updated by other users. Medical History (Updated 05/12/23 @ 15:24 by Britt Elam APRN) (HFpEF) heart failure with preserved ejection fraction Anxiety Coronary artery calcification seen on CT scan Diastolic dysfunction HLD (hyperlipidemia) HTN (hypertension) Osteoarthritis Shortness of Breath Thoracic aneurysm without mention of rupture Surgical History H/O total hysterectomy History of laparoscopic appendectomy Hx of total knee arthroplasty Family History Other No significant family history Social History Smoking Status: Never smoker alcohol intake: never current occupational status: disabled Travel in the last 8 weeks: None Review of Systems Review of Systems Review of systems:: pertinent systems reviewed and negative unless documented below Constitutional Constitutional: Reports system reviewed and no additional complaints, except as documented, Reports fatigue and Reports lethargy Eyes Eyes: Reports system reviewed and no additional complaints, except as documented ENT Ears, Nose, Mouth, and Throat: Reports system reviewed and no additional complaints, except as documented *Cardiovascular Cardiovascular: Reports system reviewed and no additional complaints, except as documented, Denies chest pain, Reports dyspnea, Reports dyspnea on exertion, Reports leg edema, Reports orthopnea and Reports pedal edema *Respiratory Respiratory: Reports system reviewed and no additional complaints, except as documented, Reports dyspnea and Reports dyspnea on exertion *Gastrointestinal Gastrointestinal: Reports system reviewed and no additional complaints, except as documented *Genitourinary Genitourinary: Reports system reviewed and no additional complaints, except as documented *Musculoskeletal Musculoskeletal: Reports system reviewed and no additional complaints, except as documented Integumentary/Breasts Skin/Breast: Reports system reviewed and no additional complaints, except as documented *Neurologic Neurologic: Reports system reviewed and no additional complaints, except as documented Psychiatric Psychiatric: Reports system reviewed and no additional complaints, except as documented Endocrine Endocrine: Reports system reviewed and no additional complaints, except as documented and Reports fatigue Hematologic/Lymphatic Hematologic/Lymphatic: Reports system reviewed and no additional complaints, except as documented Allergic/Immunologic Allergic/Immunologic: Reports system reviewed and no additional complaints, except as documented Exam Data for Last 24 hours Vital signs and Labs for Last 24 Hours: Temp Pulse Resp BP Pulse Ox O2 Del Method O2 Flow Rate 99.2 F 87 18 143/90 H 92 L Nasal Cannula 2 05/12/23 12:00 05/12/23 12:00 05/12/23 08:00 05/12/23 12:00 05/12/23 12:00 05/12/23 14:56 05/12/23 14:56 Laboratory Results - last 24 hr 05/11/23 15:49: WBC 13.5 H, RBC 4.47, Hgb 12.6, Hct 37.7, MCV 84.3, MCH 28.3, MCHC 33.6, RDW 15.1, Plt Count 246, MPV 7.9, Neut % (Auto) 83.5 H, Lymph % (Auto) 10.6, [place] % (Auto) 4.6, Eos % (Auto) 1.0, Baso % (Auto) 0.4, Neut # (Auto) 11.3 H, Lymph # (Auto) 1.4, [place] # (Auto) 0.6, Eos # (Auto) 0.1, Baso # (Auto) 0.1, D-Dimer 2.68 H, Sodium 137, Potassium 3.7, Chloride 106, Carbon Dioxide 28, Anion Gap 6.7, BUN 19 H, Creatinine 1.30 H, Estimated Creat Clear 89, Estimated GFR 42 L, Est GFR ( Amer) 50 L, Glucose 122 H, Lactate 0.9, Calcium 9.6, Magnesium 2.0, Total Bilirubin 0.8, AST 29, ALT 22, Alkaline Phosphatase 161 H, Troponin I 0.05 H, NT-Pro-B Natriuret Pep 592 H, Total Protein 8.0, Albumin 4.1, Globulin 3.9 H, Albumin/Globulin Ratio 1.1, TSH 1.42, Thyroxine (T4) 10.8 05/11/23 15:59: VBG pH 7.36, VBG pCO2 40.7, VBG pO2 37.1, VBG HCO3 22.3 L, VBG Total CO2 23.6, VBG O2 Saturation 70.9 H, VBG Base Excess -3.2 L 05/11/23 16:05: SARS-CoV-2 (PCR) Not detected, Influenza A Untype (PCR) Not detected, Influenza Type B (PCR) Not detected 05/11/23 19:50: Troponin I 0.05 H 05/12/23 08:10: WBC 11.5 H, RBC 4.04 L, Hgb 11.7 L, Hct 34.4 L, MCV 85.1, MCH 29.0, MCHC 34.0, RDW 15.0, Plt Count 244, MPV 8.4, Neut % (Auto) 78.4, Lymph % (Auto) 13.9, [place] % (Auto) 6.2, Eos % (Auto) 1.1, Baso % (Auto) 0.4, Neut # (Auto) 9.0 H, Lymph # (Auto) 1.6, [place] # (Auto) 0.7, Eos # (Auto) 0.1, Baso # (Auto) 0.0, Sodium 141, Potassium 3.4 L, Chloride 104, Carbon Dioxide 27, Anion Gap 13.4, BUN 22 H, Creatinine 1.50 H, Estimated Creat Clear 76, Estimated GFR 35 L, Est GFR ( Amer) 43 L, Glucose 106 H, Hemoglobin A1c 5.5, Calcium 9.5, Magnesium 2.1, Total Bilirubin 0.8, AST 28, ALT 21, Alkaline Phosphatase 154 H, Total Protein 7.5, Albumin 3.9, Globulin 3.6 H, Albumin/Globulin Ratio 1.1, Triglycerides 212 H, Cholesterol 263 H, LDL Cholesterol Direct 138.18 H, VLDL Cholesterol 42 H, HDL Cholesterol 35 L, Cholesterol/HDL Ratio 7.5 H, TSH 1.98 D, Free T4 1.34 I & O for Last 24 hours: Intake & Output 05/09/23 05/10/23 05/11/23 05/12/23 23:59 23:59 23:59 23:59 Intake Total 516 / 516 Output Total 0 / 0 650 / 650 Balance 0 / 40 -134 / -134 Weight 270 lb 2 oz 270 lb 2.012 oz Constitutional Constitutional: no acute distress and morbidly obese *Routine HEENT Exam Head: Present normocephalic and atraumatic ENT: Present mucous membranes moist *Routine Neck Exam Neck: Present supple, full ROM and normal carotid upstroke; Absent JVD, carotid bruit or lymphadenopathy *Routine Respiratory Exam Respiratory: Present CTA bilaterally, normal respiratory effort, able to speak in complete sentences and symmetric chest movement *Routine Cardiovascular Exam Cardiovascular: Present RRR, Normal S1 and Normal S2; Absent murmur or gallop *Routine Abdominal Exam Abdominal: Present soft and normoactive bowel sounds; Absent tenderness, diste nded or organomegaly *Routine Extremities Exam Extremities: Present edema (1+ BLE), full ROM, pulses intact and normal capillary refill; Absent cyanosis or clubbing *Routine Skin Exam Skin: Present intact and warm; Absent erythema *Routine Neurological Exam Neurological: Present alert, oriented X3 and CN II-XII intact; Absent sensory deficit or motor deficit Routine Psychiatric Exam Psychiatric: Present normal affect Meds Home Medications and Allergies Home Medications Medication Instructions Recorded Confirmed Type hydrochlorothiazide 25 mg tablet 25 mg PO DAILY 11/25/22 05/11/23 History olmesartan 40 mg tablet 40 mg PO DAILY 11/25/22 05/11/23 History oxybutynin chloride 10 mg 10 mg PO DAILY 11/25/22 05/11/23 History tablet,extended release 24 hr rosuvastatin 40 mg tablet 40 mg PO DAILY 11/25/22 05/11/23 History New Prescriptions to Start Prescriptions: Allergies Allergy/AdvReac Type Severity Reaction Status Date / Time No Known Drug Allergies Allergy Verified 11/25/22 13:26 Assessment and Plan *Assessment and plan (1) Shortness of Breath: Status: Acute Category: Medical Code(s): R06.02 - Shortness of breath (2) Pulmonary embolism: Status: Acute Qualifiers: Acute cor pulmonale presence: without acute cor pulmonale Chronicity: acute Pulmonary embolism type: other Qualified Code(s): I26.99 - Other pulmonary embolism without acute cor pulmonale Category: Medical Code(s): I26.99 - Other pulmonary embolism without acute cor pulmonale (3) Acute non-ST elevation myocardial infarction (NSTEMI): Status: Acute Category: Medical Code(s): I21.4 - Non-ST elevation (NSTEMI) myocardial infarction (4) Hypertension: Status: Acute Qualifiers: Hypertension type: primary hypertension Qualified Code(s): I10 - Essential (primary) hypertension Category: Medical Code(s): I10 - Essential (primary) hypertension (5) (HFpEF) heart failure with preserved ejection fraction: Status: Acute Qualifiers: Heart failure chronicity: acute on chronic Qualified Code(s): I50.33 - Acute on chronic diastolic (congestive) heart failure Category: Medical Code(s): I50.30 - Unspecified diastolic (congestive) heart failure (6) Coronary artery calcification seen on CT scan: Status: Acute Category: Medical Code(s): I25.10 - Atherosclerotic heart disease of [place] coronary artery without angina pectoris (7) Thoracic aneurysm without mention of rupture: Status: Acute Qualifiers: Presence of rupture: without rupture Thoracic aorta location: ascending aorta Qualified Code(s): I71.21 - Aneurysm of the ascending aorta, without rupture Category: Medical Code(s): I71.20 - Thoracic aortic aneurysm, without rupture, unspecified (8) Diastolic dysfunction: Status: Acute Category: Medical Code(s): I51.89 - Other ill-defined heart diseases Plan Plan: 1. This is a 62-year-old white female who presented to the emergency department complaints of shortness of breath. The patient was found to have an elevated D- dimer. A CT of the chest showed multiple bilateral segmental and subsegmental pulmonary emboli. The patient is currently on therapeutic Lovenox for anticoagulation. She will need to be converted over to oral anticoagulation prior to discharge home. 2. The patient was also found to have diastolic dysfunction on CT. After further discussion with the patient it sounds like she has been short of breath and having lower extremity edema for the last approximately 6 months. She is likely having acute exacerbation of HFpEF. Her echocardiogram shows a normal ejection fraction with a significantly thickened LV wall consistent with a diastolic dysfunction and HFpEF. The patient would benefit from IV diuresis. Will start her on Lasix 40 mg IV twice daily. 3. We will also start her on spironolactone 25 mg p.o. daily. 4. Due to her thickened LV wall she would benefit from a cardiac MRI on an outpatient basis. 5. Start Jardiance 10 mg daily for HFpEF. 6. Start Entresto 49/51 mg p.o. twice daily for her hypertension and HFpEF. 7. The patient did have an elevated troponin consistent with a non-STEMI. This is most likely a type II NM from the bilateral PE. Once she has recovered from the acute bilateral PEs then she will need an ischemic evaluation at that time. She has known coronary calcifications on CT scan. So depending on her symptoms that she will either need left cardiac catheterization prior to discharge home or Myoview stress testing on an outpatient basis. Will continue to follow her symptoms and decide the best approach for her ischemic evaluation once she is improved from this acute phase. 8. Her LDL goal is less than 55. Will get a lipid panel in the morning. Will start her on a statin. 9. Recommend aspirin 81 mg daily. 10. The patient does have a thoracic aortic aneurysm measuring 4.2 cm. Will follow-up on this in 6 months on an outpatient basis. 11. Further recommendations will be made pending the patient's response to treatment. Thank you for the opportunity to help participate in the care of this patient. All recommendations and orders are per Dr. Post.
[2023-05-12] MEDS: FUROSEMIDE 40MG/4ML VIAL 40 MG IV (15:22)
[2023-05-12] MEDS: ASPIRIN EC 81MG TABLET 81 MG PO (17:04)
[2023-05-12] MEDS: ATORVASTATIN 40MG TABLET 40 MG PO (20:15)
[2023-05-12] MEDS: ACETAMINOPHEN 325MG TAB 650 MG PO (20:15)
--- NOTE | 2023-05-12 21:29 | CA_ITS ---
FINAL REPORT CLINICAL HISTORY: PE, leg swelling, obesity COMPARISON: None FINDINGS: Color Doppler, duplex Doppler and compression sonography of the bilateral lower extremities was performed. LEFT: There is no evidence of deep venous thrombosis from the level of the groin to the calf. The deep veins are patent and compressible. RIGHT: Evidence of deep venous thrombosis in the posterior tibial and peroneal veins. IMPRESSION: Right lower extremity DVT posterior tibial and peroneal veins. No evidence of DVT in the left lower extremity. Reviewed, Interpreted and Dictated by Luis Alberto Hall III, MD Transcribed by Leandra Avery Authenticated and [facility]
[2023-05-12] MEDS: CYCLOBENZAPRINE 10MG TABLET 5 MG PO (23:10)
[2023-05-13] VITALS (23 sets, daily range): BP systolic 131–187; BP diastolic 73–122; PULSE 56–102; RESP 17–20; TEMP 36.7–37.2; O2SAT 90–98; BMI 40.0
--- NOTE | 2023-05-13 | IR_ITS ---
APPROVED REPORT Patient Location: Inpatient PROCEDURES Left heart catheterization Left ventriculogram Selective coronary angiogram Intravascular ultrasound of the circumflex artery Drug-eluting stent deployment to the circumflex artery Drug-eluting stent deployment to the distal right coronary artery's posterior descending artery Bilateral selective renal angiography INDICATION Angina pectoris, Coronary artery disease, Chronic renal failure, Suspect renal artery stenosis causing renovascular hypertension, Angiographic ambiguous circumflex artery stenosis Informed consent was obtained prior to the procedure. COMPLICATIONS None Estimated Blood Loss: Less than 10 mls TECHNIQUE One percent lidocaine was used to anesthetize the right groin. The right femoral artery was accessed via the Seldinger technique. A 4-Syriac sheath was placed in the right femoral artery. The JL-4 and JR-4 catheter was also used to perform left heart catheterization left ventriculogram and selective coronary angiogram. At the end of the diagnostic angiogram therapeutic heparin was administered giving a therapeutic ACT and the guide catheter was placed in the left main artery followed by Choice PT extra-support wire down the circumflex artery. Intravascular ultrasound probe was advanced to measure the size of the vessel and the stenotic area given the vascular ectasia which was present. The IVUS catheter could not be advanced beyond a concentric calcified stenosis. Because of this the guide liner was advanced and a 4 mm x 30 mm [place] frontier stent was deployed at 20 spencer reducing the severe stenosis to less than 10%. Excellent angiographic results were obtained with wide patency of the circumflex artery. Following this the guide catheter was placed into the dominant right coronary artery and the wire was advanced into the posterior descending artery followed by a guide liner. A 3 mm x 22 mm [place] frontier stent was deployed at 20 spencer in the proximal posterior descending artery reducing the severe stenosis to 0%. CHUCK-3 flow was present before and after the procedure and both the circumflex artery and the posterior descending artery. After achieving excellent angiographic results 118 cm JR4 guide catheter was used to perform bilateral selective renal angiography. At the end the procedure the apparatus was removed the sheath was removed and hemostasis was achieved using TR banding patient was transferred to the postop holding area in stable condition ANGIOGRAPHIC RESULTS The left main artery Normal The left anterior descending artery Has diffuse proximal and mid vessel mild to moderate vascular ectasia. The proximal portion has 10 to 20% stenoses while the mid vessel has 30 and 40% stenoses. Distally the LAD does not supply the entire apex. The circumflex artery Is nondominant yet still large caliber vessel giving rise to a very large first obtuse marginal artery. Proximally there is a concentric 50% stenosis with a greater than 70% stenosis proximal to the large obtuse marginal artery. The obtuse marginal artery has diffuse 10 to 20% stenoses The right coronary artery Is a large dominant vessel and has moderate to severe diffuse vascular ectasia. Proximally there are 10 to 20% stenoses while the distal vessel has 10 to 20% stenotic areas interspersed with the vascular ectasia and aneurysmal dilatation. It gives rise to a massively large posterior descending artery which has proximal 80% stenosis followed by an aneurysm followed by additional 80% stenosis. The posterior descending artery extends to the apex The RICE ventriculogram reveals Hyperdynamic 70% The left ventricular end-diastolic pressure 20 mmHg Right renal artery singular normal Left renal artery singular normal IMPRESSION Diffuse moderate to severe vascular ectasia with aneurysmal dilatation throughout as described above Severe stenosis in a posterior descending artery which supplied the entire inferior wall and apex with successful stenting reducing the severe stenosis to 0% with 1 drug-eluting stent Severe stenosis in a large circumflex artery with successful stenting reducing the stenosis to 0% with 1 drug-eluting stent Hyperdynamic ventricle consistent with diastolic dysfunction hypertensive heart disease Elevated LVEDP also consistent with diastolic dysfunction Normal renal arteries PLAN 1. Plavix 75 mg daily plus aspirin 81 mg daily 2. LDL less than 55 to be achieved with high intensity statin 3. Avoidance of tobacco products 4. Risk factor modification Electronically signed by : Elgin Davis MD 05/13/2023 16:43:13
[2023-05-13] MEDS: MORPHINE 2MG/ML SYRINGE 2 MG IV (03:24)
[2023-05-13 06:24] LABS: Basophils # 0.1 K/mm3 (0-0.2); Basophils % 0.3 % (0.1-2.0); Eosinophils # 0.1 K/mm3 (0.0-0.4); Eosinophils % 0.6 % (0.1-12.0); Hematocrit 37.7 % (37.0-47.0); Lymphocytes # 1.9 K/mm3 (0.7-4.5); Lymphocytes % 11.2 % (10-50); Mean Corpuscular HGB Conc 34.2 g/dL (31.8-35.4); Mean Corpuscular Hemoglobin 28.6 pg (27.0-31.2); Mean Corpuscular Volume 83.5 fl (81-99); Mean Platelet Volume 8.4 fl (7.4-10.4); Monocytes # 1.1 K/mm3 (0.1-1.0); Monocytes % 6.5 % (1.7-9.3); Neutrophils # 13.7 K/mm3 (1.8-7.8); Neutrophils % 81.4 % (37.0-80.0); Platelet Count 269 K/mm3 (142-424); Red Blood Count 4.52 M/mm3 (4.20-5.40); Red Cell Distribution Width 15.1 % (11.5-17.5); White Blood Count 16.9 K/mm3 (4.8-10.8)
[2023-05-13 06:32] LABS: Hemoglobin 12.9 g/dL (12.2-16.2); MANUAL DIFFERENTIAL MANUAL DIFFERENTIAL (MANUAL DIFF)
[2023-05-13 06:35] LABS: Alanine Aminotransferase 28 U/L (12-78); Albumin Level 4.1 g/dl (3.5-5.0); Alkaline Phosphatase 164 U/L (38-126); Anion Gap 8.3 mEq/L (5-15); Aspartate Amino Transferase 35 U/L (14-36); Bilirubin,Direct 0.2 mg/dl (0.0-0.4); Bilirubin,Indirect 0.7 mg/dL (0.0-0.9); Bilirubin,Total 0.9 mg/dl (0.2-1.3); Bilirubin,Unconjugated 0.7 mg/dL (0.0-1.1); Blood Urea Nitrogen 20 mg/dl (7-17); Calcium 9.5 mg/dl (8.4-10.2); Carbon Dioxide 30 mmol/L (22.0-30.0); Chloride 100 mmol/L (98-107); Cholesterol 279 mg/dl (140-200); Creatinine Clearance Estimated 82 mL/min (50-200); Estimated Glomerular Filt Rate 38 ml/min (>60); GFR (African American) 46 ML/MIN (>60); Glucose 119 mg/dl (74-100); HDL Cholesterol 40 mg/dl (40-60); Potassium 3.3 mmoL/L (3.5-5.1); Sodium 135 mmol/L (136-145); Total Protein,Serum 8.2 g/dl (6.3-8.2); Triglycerides 153 mg/dl (30-150); VLDL Cholesterol 31 mg/dL (0-40)
--- NOTE | 2023-05-13 06:42 | PC.NURSE ---
Pt A&Ox4. Complained of pain, treated per mar. Pt mother remains at the bedside. Pt is requiring 2x assist to bedside commode with walker. Pt has rested intermittently. No other issues noted.
[2023-05-13 06:46] LABS: Direct LDL Cholesterol 149.53 mg/dL (100-129)
[2023-05-13 07:05] LABS: Eosinophils % 1 % (0-3); Lymphocytes % 14 % (10-50); Monocytes % 5 % (2-9); Neutrophils % 77 % (42-76); Total Cells Counted 100
[2023-05-13 07:07] LABS: Platelet Estimate Normal; RBC Morphology Normal
[2023-05-13 07:27] LABS: Procalcitonin 0.128 ng/mL (0.0-2.0)
[2023-05-13] MEDS: ENOXAPARIN 150MG/ML SYRINGE 125 MG SQ ×2 (08:18→21:06)
[2023-05-13] MEDS: SPIRONOLACTONE 25MG TABLET 25 MG PO (08:19)
[2023-05-13] MEDS: ASPIRIN EC 81MG TABLET 81 MG PO (08:19)
[2023-05-13] MEDS: FUROSEMIDE 40MG/4ML VIAL 40 MG IV ×2 (08:19→17:15)
[2023-05-13] MEDS: SACUBITRIL/VALSARTAN 24-26MG TABLET 2 EACH PO ×2 (08:19→21:04)
[2023-05-13] MEDS: EMPAGLIFLOZIN 10MG TABLET 10 MG PO (08:19)
--- NOTE | 2023-05-13 09:44 | HMH.PHAINT1 ---
Pharmacy Intervention Comments: Home med list verified with patient and family at bedside, and with active medication list provided by family.
[2023-05-13] MEDS: SENNOSIDES 8.6MG/DOCUSATE 50MG TABLET 1 TAB PO ×2 (10:25→21:04)
[2023-05-13] MEDS: POLYETHYLENE GLYCOL 3350 17 GM PACKET PO (10:26)
[2023-05-13 12:11] LABS: Basophils # 0.1 K/mm3 (0-0.2); Basophils % 0.4 % (0.1-2.0); Eosinophils # 0.2 K/mm3 (0.0-0.4); Eosinophils % 1.3 % (0.1-12.0); Hematocrit 37.3 % (37.0-47.0); Hemoglobin 12.6 g/dL (12.2-16.2); Lymphocytes # 2.1 K/mm3 (0.7-4.5); Lymphocytes % 11.7 % (10-50); Mean Corpuscular HGB Conc 33.8 g/dL (31.8-35.4); Mean Corpuscular Hemoglobin 28.6 pg (27.0-31.2); Mean Corpuscular Volume 84.6 fl (81-99); Monocytes # 1.3 K/mm3 (0.1-1.0); Monocytes % 7.5 % (1.7-9.3); Neutrophils # 13.8 K/mm3 (1.8-7.8); Neutrophils % 79.1 % (37.0-80.0); Platelet Count 276 K/mm3 (142-424); Red Blood Count 4.41 M/mm3 (4.20-5.40); Red Cell Distribution Width 15.1 % (11.5-17.5); White Blood Count 17.5 K/mm3 (4.8-10.8)
[2023-05-13 12:17] LABS: Chloride 100 mmol/L (98-107); Potassium 3.1 mmoL/L (3.5-5.1); Sodium 138 mmol/L (136-145)
[2023-05-13 12:20] LABS: Anion Gap 12.1 mEq/L (5-15); Blood Urea Nitrogen 26 mg/dl (7-17); Carbon Dioxide 29 mmol/L (22.0-30.0); Creatinine Clearance Estimated 57 mL/min (50-200); Estimated Glomerular Filt Rate 25 ml/min (>60); GFR (African American) 31 ML/MIN (>60); Glucose 126 mg/dl (74-100)
[2023-05-13 12:21] LABS: Calcium 9.5 mg/dl (8.4-10.2)
--- NOTE | 2023-05-13 13:51 | HMH.OTEV ---
OT Inpatient Evaluation Rehab OT IP Evaluation Start: 05/13/23 10:35 Freq: ONCE Status: Active Protocol: Document 05/13/23 13:43 [facility] (Rec: 05/13/23 13:51 [facility] [id number]) Rehab OT IP Assessment Subjective History Pt oriented x 2 on arrival. Pt agreeable to engage in therapy evaluation. Pt admitted on 05/11/22 due to SOB and PE. Prior to being in the hospital, pt lived with her . Pt claims she was normally independent with all ADLs and IADLs. She did use a rolling walker or can during functional mobility tasks. History and Physical report: This is a 62-year-old female with a past medical history of hyper arthritis who presents to the emergency department today with shortness of breath . She also reports mid left thoracic back pain just underneath her scapula as well . She denies any cough or fever. She states that she has hypertension that is uncontrolled. Her systolic blood pressure is normally in the 190s. She reports that she been taking her blood pressure medicine as prescribed but never sees improvement. She also complains of bilateral lower extremity edema without pain. States that she has been on HCTZ without any changes. She denies any worsening of her bilateral lower extremities. Denies any extensive plane rides, car rides. Denies any coagulation defects or family history of. Emergency department workup significant for hypertensive urgency with systolic blood pressure in the 200s. Elevated D-dimer. Mildly elevated troponin 0.05. Elevated BNP of 592. CT scan of the chest notable for multiple bilateral segmental and subsegmental pulmonary emboli with no CT evidence of heart strain. Bilateral atrial enlargement suggestive of diastolic dysfunction. Mild fusiform aneurysmal dilatation of the ascending aorta measuring 4.2 cm. Cardiology consulted and will see patient in AM. Patient was given IV Lasix, labetalol and therapeutic Lovenox admitted to hospital service for further evaluation management Subjective My leg just hurts. Objective Patient Orientation Person,Birthday Right Upper Extremity Gross ROM WFL Left Upper Extremity Gross ROM WFL Bed Mobility bed mobility-scooting,bed mobility - supine/sit Assist Level Moderate x 2 (50% assist) Transfer Training Sit/Stand/Step Transfer Assist Level Maximum x 1 (75% assist) Rehab OT IP prob,goals,plan Problems Date of Evaluation: 05/13/23 OT IP Problems Bed Mobility,Transfers,Balance ,Self care,Safety Rehab Potential Rehab Potential Good Equipment Needs Assistive Devices Rolling / Wheeled Walker Plan OT intervention Plan Bed Mobility,Transfers,Balance ,Self care,Safety,Therapeutic Exercise OT Plan Frequency BID Duration LOS Discharge Goals Bed Mobility Ability Assistance x1 Sit to Stand Chair Transfer Ability Moderate x 2 (50% assist) Chair Transfer Ability Moderate x 2 (50% assist) Chair Transfer Technique Sit to/from Ambulatory Chair Transfer Assistive Devices Rolling Walker Feeding Ability Assist with Tray Set Up Lower Body Dressing Ability Moderate Assistance Upper Body Dressing Ability Standby Assistance Bathing Ability Moderate Assistance Performing Toilet Hygiene Ability Moderate Assistance Overall Commode/Toilet Transfer Ability Moderate Assistance Commode/Toilet Transfer Technique Sit to/from Ambulatory Commode/Toilet Transfer Assistive Grab Bars Devices Oral Care Assist Moderate Assistance Decrease in Endurance Yes Discharge Plan OT Discharge Plan Pt will continue to be seen for OT services while at [facility]. Pt would benefit most from short term rehab at SNF following discharge from hospital. Continued skilled therapy is important for patient to improve strength, safety, endurance, ADL independence, and functional transfers to reach PLOF. Eval Complexity Eval Charge Codes 56065 - Moderate Complexity PHYSICIAN CERTIFICATION: I certify the specified therapy services for Sophie Cevallos are required, authorized, and reviewed every 30 days.
--- NOTE | 2023-05-13 13:52 | HMH.PTEV ---
Physical Therapy Evaluation Rehab PT IP Evaluation Start: 05/13/23 10:35 Freq: ONCE Status: Active Protocol: Document 05/13/23 13:47 [email or web address] (Rec: 05/13/23 13:52 PHORNE [id number]) Subjective/History History History 62 yowf adm to [facility] with increased SOA, found to have PE and R LE DVT. She has PMH of OA, HTN, HLD, anxiety. SHe reports she lives with her , ramp to enter the home, and she is generally independent with all mobility using a cane or rolator. She is scheduled for heart cath sometime this evening. Subjective Subjective Currently she reports feeling tired and generally weak. New diagnosis of cancer in past 12 No months? Rehab PT IP Eval Objective Appearance Patient Behavior Appropriate Patient Orientation Person,Place,Time Difficulty following instructions none Speech Pattern Clear Ambulation Patient Able to Ambulate No Balance Ability to Arise Unable Sitting Balance Steady, safe Standing Balance Unsteady Dynamic Sitting Balance Ability Good Dynamic Standing Balance Ability Poor Transfers Bed Transfer Ability Moderate x 2 (50% assist) Sit to Stand Bed Transfer Ability Moderate x 2 (50% assist) Sit to Stand Chair Transfer Ability Moderate x 2 (50% assist) Rehab PT IP prob,goals,plan Problems Date of Evaluation: 05/13/23 PT IP Problems Bed Mobility,Transfers,Gait Rehab Potential Rehab Potential Good Plan PT Intervention Plan Bed Mobility,Transfers,Gait, Therapeutic Exercise PT Plan Frequency Daily Duration LOS Discharge Goals Bed Transfer Ability Moderate x 1 (50% assist) Sit to Stand Chair Transfer Ability Moderate x 1 (50% assist) Ambulation Assistive Device Rolling Walker Ambulation Distance (feet) 10 Discharge Plan PT Discharge Plan Pt is currently most appropriate for rehab placement once medically stable for d/c. Skilled intervention necessary to reduce likelihood of falls, injury, wounds, or debility. Eval Complexity Eval Charge Codes 24493 - High Complexity PHYSICIAN CERTIFICATION: I certify the specified therapy services for Sophie Cevallos are required, authorized, and reviewed every 30 days.
--- NOTE | 2023-05-13 14:18 | SW/DCPLANNER ---
Addendum entered by Alannah Drummond 05/14/23 13:17: Isidro w/ [facility] stated that services will start this week. Addendum entered by Alannah Drummond 05/14/23 12:38: Patient information/order will be faxed to [facility] today. Per MD patient will discharge home today. Addendum entered by Alannah Drummond 05/14/23 10:38: Patient and her have now expressed an interest in returning home w/ home health services. Patient stated that she has all appropriate DME at home including a rollator and bedside commode. I will continue to follow up w/ patient and family until medically stable for discharge. Discharge date is unknown at this time. Addendum entered by Alannah Drummond 05/13/23 14:34: [facility] is in network w/ patient's insurance: patient/family agreeable for information to be faxed today. Original Note: I spoke w/ patient, her and mother regarding plans once medically stable for discharge. PT/OT evaluated patient and recommended SNF level of care. Patient is drowsy and unable to answer questions at this time but family would like for me to investigate faciltiies that are in network w/ patient's insurance. I will reach out to local/surrounding facilities regarding in network benefits and follow up w/ family. Discharge date is unknown at this time.
--- NOTE | 2023-05-13 14:31 | EXP.CARD.PN ---
Subjective Subjective Date: 05/13/23 Time: 10:00 Principal diagnosis: SOB, PEs Interval history: This is a 62-year-old white female who presented to the emergency department complaints of shortness of breath. The patient was found to have subsegmental and segmental pulmonary emboli on CT. No RV strain was noted. No RV strain was noted on echocardiogram either. The patient also had some underlying HFpEF as well as diastolic dysfunction. She was diuresed with IV Lasix overnight and has a -1714 fluid balance. The patient reports that she has had no significant improvement or real change in her shortness of breath. She states that she feels short of breath all the time. It is worse with exertion and when she is trying to lie down. It is associated with lower extremity edema. However, her bilateral lower extremity edema has improved with diuresis. She denies any chest pain or pressure. She denies any fever, chills, nausea, vomiting or diarrhea. Exam Data for Last 24 hours Vital signs and Labs for Last 24 Hours: Temp Pulse Resp BP Pulse Ox O2 Del Method O2 Flow Rate 98.2 F 65 19 135/76 96 Nasal Cannula 2 05/13/23 08:00 05/13/23 12:00 05/13/23 12:00 05/13/23 12:00 05/13/23 12:00 05/13/23 14:13 05/13/23 14:13 Laboratory Results - last 24 hr 05/13/23 05:46: WBC 16.9 H D, RBC 4.52, Hgb 12.9 D, Hct 37.7, MCV 83.5, MCH 28.6, MCHC 34.2, RDW 15.1, Plt Count 269, MPV 8.4, Neut % (Auto) 81.4 H, Lymph % (Auto) 11.2, [place] % (Auto) 6.5, Eos % (Auto) 0.6, Baso % (Auto) 0.3, Neut # (Auto) 13.7 H, Lymph # (Auto) 1.9, [place] # (Auto) 1.1 H, Eos # (Auto) 0.1, Baso # (Auto) 0.1, Total Counted 100, Neutrophils % (Manual) 77 H, Band Neutrophils % 3.0, Lymphocytes % (Manual) 14, Monocytes % (Manual) 5, Eosinophils % (Manual) 1, Platelet Estimate Normal, RBC Morphology Normal, Sodium 135 L, Potassium 3.3 L, Chloride 100, Carbon Dioxide 30, Anion Gap 8.3, BUN 20 H, Creatinine 1.40 H, Estimated Creat Clear 82, Estimated GFR 38 L, Est GFR ( Amer) 46 L, Glucose 119 H, Calcium 9.5, Total Bilirubin 0.9, Direct Bilirubin 0.2, Conjugated Bilirubin 0.0, Indirect Bilirubin 0.7, Unconjugated Bilirubin 0.7, AST 35, ALT 28 D, Alkaline Phosphatase 164 H, Total Protein 8.2, Albumin 4.1, Triglycerides 153 H, Cholesterol 279 H, LDL Cholesterol Direct 149.53 H, VLDL Cholesterol 31, HDL Cholesterol 40, Cholesterol/HDL Ratio 7.0 H, Procalcitonin 0.128 05/13/23 11:59: WBC 17.5 H, RBC 4.41, Hgb 12.6, Hct 37.3, MCV 84.6, MCH 28.6, MCHC 33.8, RDW 15.1, Plt Count 276, MPV 8.0, Neut % (Auto) 79.1, Lymph % (Auto) 11.7, [place] % (Auto) 7.5, Eos % (Auto) 1.3, Baso % (Auto) 0.4, Neut # (Auto) 13.8 H, Lymph # (Auto) 2.1, [place] # (Auto) 1.3 H, Eos # (Auto) 0.2, Baso # (Auto) 0.1, Sodium 138, Potassium 3.1 L, Chloride 100, Carbon Dioxide 29, Anion Gap 12.1, BUN 26 H D, Creatinine 2.00 H D, Estimated Creat Clear 57, Estimated GFR 25 L, Est GFR ( Amer) 31 L D, Glucose 126 H, Calcium 9.5 I & O for Last 24 hours: Intake & Output 05/10/23 05/11/23 05/12/23 05/13/23 23:59 23:59 23:59 23:59 Intake Total 786 / 786 360 / 360 Output Total 0 / 0 2500 / 2500 0 / 0 Balance 0 / 40 -1714 / -1714 360 / 360 Weight 270 lb 2 oz 270 lb 2.012 oz 270 lb 2.083 oz Constitutional Constitutional: no acute distress and morbidly obese *Routine HEENT Exam Head: Present normocephalic and atraumatic ENT: Present mucous membranes moist *Routine Neck Exam Neck: Present supple, full ROM and normal carotid upstroke; Absent JVD, carotid bruit or lymphadenopathy *Routine Respiratory Exam Respiratory: Present CTA bilaterally, normal respiratory effort, able to speak in complete sentences and symmetric chest movement *Routine Cardiovascular Exam Cardiovascular: Present RRR, Normal S1 and Normal S2; Absent murmur or gallop *Routine Abdominal Exam Abdominal: Present soft and normoactive bowel sounds; Absent tenderness, distended or organomegaly *Routine Extremities Exam Extremities: Present edema (Trace to 1+ bilateral lower extremity edema), full ROM, pulses intact and normal capillary refill; Absent cyanosis or clubbing *Routine Skin Exam Skin: Present intact and warm; Absent erythema *Routine Neurological Exam Neurological: Present alert, oriented X3 and CN II-XII intact; Absent sensory deficit or motor deficit Routine Psychiatric Exam Psychiatric: Present normal affect Progress Note: A&P Assessment and plan (1) Acute non-ST elevation myocardial infarction (NSTEMI): Status: Acute (2) Atypical angina: Status: Acute (3) Shortness of Breath: Status: Acute (4) (HFpEF) heart failure with preserved ejection fraction: Status: Acute (5) Pulmonary embolism: Status: Acute (6) Hypertension: Status: Acute (7) Coronary artery calcification seen on CT scan: Status: Acute (8) Thoracic aneurysm without mention of rupture: Status: Acute (9) Diastolic dysfunction: Status: Acute (10) HLD (hyperlipidemia): Status: Acute (11) Diastolic dysfunction: Status: Acute Assessment and Plan Assessment and Plan for All Diagnoses:: Plan: 1. This is a 62-year-old female who was admitted to the hospital after being found to have bilateral segmental and subsegmental pulmonary emboli. The patient is currently on therapeutic Lovenox for anticoagulation. Prior to discharge home she will be switched over to oral anticoagulation. 2. The patient did have an elevated troponin consistent with a non-STEMI. The patient continues to have worsening shortness of breath. Despite diuresis for her HFpEF she has had no improvement in her shortness of breath since being admitted. In addition to her elevated troponin and her CT of the chest showed coronary calcifications. This shortness of breath is likely atypical angina. In the setting of her atypical angina and non-STEMI we will plan to proceed with left cardiac catheterization today to evaluate the coronary artery disease. 3. The patient has been educated the risk and benefits of proceeding with left cardiac catheterization. She verbalizes understanding and is agreeable in proceeding with the procedure. 4. The patient also has malignantly elevated blood pressures. She states that her blood pressure is always 190 systolic at home. At the time of her left cardiac catheterization we will also proceed with a renal angiogram to rule out renal artery stenosis. 5. The patient has been educated risk and benefits of proceeding with renal angiogram. The patient verbalized understanding and is agreeable in proceeding with that procedure as well. 6. Initially we were also going to proceed with right cardiac catheterization to evaluate her intracardial pressures secondary to her HFpEF, pulmonary hypertension and diastolic dysfunction. However due to her bilateral PEs we will cancel the right cardiac catheterization at this time. 7. The patient's echocardiogram did show LV wall thickness as well. She would benefit from a cardiac MRI on an outpatient basis. 8. The patient does have a thoracic aortic aneurysm measuring 4.2 cm. Will follow this on an outpatient basis in 6 months. 9. Continue Jardiance and Entresto as well as Lasix and spironolactone for HFpEF. 10. No beta-tod at this time due to her HFpEF and research showing that beta-blockers can worsen symptoms in patients with HFpEF. 11.Her blood pressure is well-controlled today. 12. Her LDL goal is less than 55. Her LDL is 149.Will increase her Lipitor to 80 mg p.o. nightly. 13. Continue aspirin 81 mg daily. 14. Further recommendations were made pending the patient's response to treatment and the results of her left cardiac catheterization and renal angiogram today. Thank you for the opportunity to help participate in the care of this patient. All recommendations and orders are per Dr. Post.
--- NOTE | 2023-05-13 14:55 | PC.NURSE ---
Pt. aox4, up with assist times 2 with walker, 02-2L nc in the 's, having cath procedure later today.
[2023-05-13] MEDS: 0.9 % SODIUM CHLORIDE 500 ML 25 ML IV (15:36)
[2023-05-13] MEDS: LIDOCAINE 1% 10ML MDV 20 ML IJ (15:36)
[2023-05-13] MEDS: HEPARIN 1,000 UNITS/ML 10ML VIAL (CATH LAB) 10000 UNIT IV ×2 (15:36→16:26)
[2023-05-13] MEDS: HEPARIN 1,000 UNITS/500ML NS (CATH LAB) 3000 UNIT IV (15:36)
[2023-05-13] MEDS: VERAPAMIL 2.5MG/ML 2ML VIAL 2.5 MG IV (15:37)
[2023-05-13] MEDS: diphenhydrAMINE 50MG/ML VIAL 50 MG IV (15:37)
[2023-05-13] MEDS: NITROGLYCERIN 800MCG/8ML SYR (CATH LAB) 800 MCG IA (15:37)
[2023-05-13] MEDS: FENTANYL 100MCG/2ML VIAL 25 MCG IV (15:50)
[2023-05-13] MEDS: MIDAZOLAM HCL 1MG/1ML 5ML VIAL 1 MG IV (15:50)
[2023-05-13] MEDS: IOPAMIDOL-370 (76%);100ML BOTTLE 110 ML IV (16:26)
[2023-05-13 16:30] LABS: CATHL Activated Clotting Time 244 SEC (74-125)
[2023-05-13] MEDS: CLOPIDOGREL 300MG TABLET 600 MG PO (16:36)
[2023-05-13] MEDS: LABETALOL 20MG/4ML SYRINGE 20 MG IV (17:15)
--- NOTE | 2023-05-13 19:45 | EXP.ACUTE.PN ---
Subjective *Date: 05/13/23 *Time: 23:10 Interval history: Patient states she just does not feel right today. Appears weak. On 2 L nasal cannula oxygen. White cell count increased to 16.9 today. Kidney function stable with creatinine 1.4. Cardiology evaluating. Diuresing well, -1.3 L in the past 24 hours. Blood pressure better controlled on exam this morning Medical Exam Vital signs and Labs for Last 24 Hours: Vital Signs Temp Pulse Pulse Resp BP BP Pulse Ox 05/13/23 18:37 98.2 F 73 18 140/102 H 98 05/13/23 18:00 98.2 F 72 18 145/109 H 97 05/13/23 17:45 98.2 F 72 18 143/107 H 05/13/23 17:30 98.2 F 70 17 149/116 H 98 05/13/23 17:45 143/107 H 05/13/23 17:49 05/13/23 17:00 05/13/23 17:15 98.2 F 68 17 161/117 H 96 05/13/23 17:00 98.2 F 64 18 174/100 H 96 05/13/23 17:15 187/122 H 05/13/23 12:51 80 05/13/23 16:45 93 H 19 160/100 H 95 05/13/23 16:40 92 H 19 159/105 H 95 05/13/23 16:35 90 19 131/86 95 05/13/23 16:39 93 H 05/13/23 16:30 93 H 19 143/90 H 90 L 05/13/23 14:13 05/13/23 12:00 65 19 135/76 96 05/13/23 10:19 05/13/23 08:00 90 05/13/23 08:00 95 05/13/23 08:49 05/13/23 08:00 98.2 F 84 20 138/77 93 L 05/13/23 06:54 05/13/23 05:00 05/13/23 04:00 98.4 F 56 L 20 145/91 H 94 L 05/13/23 04:00 102 H 05/13/23 03:00 05/13/23 01:00 05/13/23 00:00 84 05/13/23 00:00 98.3 F 60 18 147/73 H 92 L 05/12/23 23:00 05/12/23 21:00 05/12/23 20:00 05/12/23 20:00 99.7 F H 93 H 20 161/119 H 91 L O2 Del Method O2 Flow Rate 05/13/23 18:37 Nasal Cannula 2 05/13/23 18:00 Non-Rebreather 5 05/13/23 17:45 Non-Rebreather 5 05/13/23 17:30 Non-Rebreather 5 05/13/23 17:45 05/13/23 17:49 Non-Rebreather 5 05/13/23 17:00 Non-Rebreather 5 05/13/23 17:15 Non-Rebreather 5 05/13/23 17:00 Non-Rebreather 5 05/13/23 17:15 05/13/23 12:51 05/13/23 16:45 05/13/23 16:40 05/13/23 16:35 05/13/23 16:39 05/13/23 16:30 Simple Mask 05/13/23 14:13 Nasal Cannula 2 05/13/23 12:00 Nasal Cannula 2 05/13/23 10:19 Nasal Cannula 2 05/13/23 08:00 05/13/23 08:00 Nasal Cannula 2 05/13/23 08:49 Nasal Cannula 2 05/13/23 08:00 Nasal Cannula 05/13/23 06:54 Nasal Cannula 2 05/13/23 05:00 Nasal Cannula 2 05/13/23 04:00 Nasal Cannula 2 05/13/23 04:00 05/13/23 03:00 Nasal Cannula 2 05/13/23 01:00 Nasal Cannula 2 05/13/23 00:00 05/13/23 00:00 Nasal Cannula 2 05/12/23 23:00 Nasal Cannula 2 05/12/23 21:00 Nasal Cannula 2 05/12/23 20:00 Nasal Cannula 2 05/12/23 20:00 Nasal Cannula 2 Intake and Output 05/13/23 05/13/23 05/13/23 07:59 15:59 23:59 Intake Total 360 / 360 Output Total 0 / 0 0 / 0 0 / 0 Balance 0 / 360 360 / 360 0 / 360 Intake: Intake, Oral Amount 360 / 360 Output: Output, Urine Amount 0 / 0 0 / 0 0 / 0 Other: Number of Voids 0 Number of Unmeasured Voids 1 1 Weight 122.529 kg 122.529 kg Patient Weight 05/13/23 23:59 Weight 122.529 kg Laboratory Results - last 24 hr 05/13/23 05:46: WBC 16.9 H D, RBC 4.52, Hgb 12.9 D, Hct 37.7, MCV 83.5, MCH 28.6, MCHC 34.2, RDW 15.1, Plt Count 269, MPV 8.4, Neut % (Auto) 81.4 H, Lymph % (Auto) 11.2, [place] % (Auto) 6.5, Eos % (Auto) 0.6, Baso % (Auto) 0.3, Neut # (Auto) 13.7 H, Lymph # (Auto) 1.9, [place] # (Auto) 1.1 H, Eos # (Auto) 0.1, Baso # (Auto) 0.1, Total Counted 100, Neutrophils % (Manual) 77 H, Band Neutrophils % 3.0, Lymphocytes % (Manual) 14, Monocytes % (Manual) 5, Eosinophils % (Manual) 1, Platelet Estimate Normal, RBC Morphology Normal, Sodium 135 L, Potassium 3.3 L, Chloride 100, Carbon Dioxide 30, Anion Gap 8.3, BUN 20 H, Creatinine 1.40 H, Estimated Creat Clear 82, Estimated GFR 38 L, Est GFR ( Amer) 46 L, Glucose 119 H, Calcium 9.5, Total Bilirubin 0.9, Direct Bilirubin 0.2, Conjugated Bilirubin 0.0, Indirect Bilirubin 0.7, Unconjugated Bilirubin 0.7, AST 35, ALT 28 D, Alkaline Phosphatase 164 H, Total Protein 8.2, Albumin 4.1, Triglycerides 153 H, Cholesterol 279 H, LDL Cholesterol Direct 149.53 H, VLDL Cholesterol 31, HDL Cholesterol 40, Cholesterol/HDL Ratio 7.0 H, Procalcitonin 0.128 05/13/23 11:59: WBC 17.5 H, RBC 4.41, Hgb 12.6, Hct 37.3, MCV 84.6, MCH 28.6, MCHC 33.8, RDW 15.1, Plt Count 276, MPV 8.0, Neut % (Auto) 79.1, Lymph % (Auto) 11.7, [place] % (Auto) 7.5, Eos % (Auto) 1.3, Baso % (Auto) 0.4, Neut # (Auto) 13.8 H, Lymph # (Auto) 2.1, [place] # (Auto) 1.3 H, Eos # (Auto) 0.2, Baso # (Auto) 0.1, Sodium 138, Potassium 3.1 L, Chloride 100, Carbon Dioxide 29, Anion Gap 12.1, BUN 26 H D, Creatinine 2.00 H D, Estimated Creat Clear 57, Estimated GFR 25 L, Est GFR ( Amer) 31 L D, Glucose 126 H, Calcium 9.5 05/13/23 16:58: Activated Clotting Time 244 H* I & O for Labs for Last 24 Hours: Intake & Output 05/10/23 05/11/23 05/12/23 05/13/23 23:59 23:59 23:59 23:59 Intake Total 786 / 786 360 / 360 Output Total 0 / 0 2500 / 2500 0 / 0 Balance 0 / 40 -1714 / -1714 360 / 360 Weight 122.527 kg 122.527 kg 122.529 kg Constitutional: Present morbidly obese, chronically ill appearing and cooperative Head: Present atraumatic and normocephalic ENT: Present normal exam Neck: Present normal inspection Respiratory: Present crackles (in bases) and normal respiratory effort; Absent rhonchi or wheezes Cardiac: Present Reg Rate and Rhythm GI: Present soft and normal bowel sounds; Absent distention or tenderness Comments:: protuberant abdomen Extremities: Present normal inspection and full ROM; Absent edema Skin: Present intact; Absent erythema Neuro: Present Grossly Intact, alert, awake, oriented x 3 and moves all extremities Comment:: speech intelligible, but slow. Assessment and Plan *Assessment and plan (1) Pulmonary embolism: Status: Acute Qualifiers: Acute cor pulmonale presence: without acute cor pulmonale Chronicity: acute Pulmonary embolism type: other Qualified Code(s): I26.99 - Other pulmonary embolism without acute cor pulmonale Category: Medical Code(s): I26.99 - Other pulmonary embolism without acute cor pulmonale (2) (HFpEF) heart failure with preserved ejection fraction: Status: Acute Qualifiers: Heart failure chronicity: acute on chronic Qualified Code(s): I50.33 - Acute on chronic diastolic (congestive) heart failure Category: Medical Code(s): I50.30 - Unspecified diastolic (congestive) heart failure (3) Acute non-ST elevation myocardial infarction (NSTEMI): Status: Acute Category: Medical Code(s): I21.4 - Non-ST elevation (NSTEMI) myocardial infarction (4) Hypertensive urgency: Status: Acute Category: Medical Code(s): I16.0 - Hypertensive urgency (5) NOELLE (acute kidney injury): Status: Acute Category: Medical Code(s): N17.9 - Acute kidney failure, unspecified (6) Atypical angina: Status: Acute Category: Medical Code(s): I20.89 - Other forms of angina pectoris (7) Class 3 obesity: Status: Acute Category: Medical Code(s): E66.01 - Morbid (severe) obesity due to excess calories Plan 62-year-old female with respiratory distress. Noted to have pulmonary emboli. Initiated on anticoagulation and admitted to medicine. Cardiology consulted. Appreciate their assistance in care. Continues to require inpatient management. Problems addressed as follows: Pulmonary embolism Cardiology consulted, discussed case this morning. PEs are subsegmental. No indication for thrombectomy at this time. Continue anticoagulation. Ultrasound lower extremity positive for DVT in right leg. Will continue therapeutic Lovenox 1 mg/kg twice daily. Hypertensive urgency NSTEMI HFpEF Cardiology consulted, appreciate their recommendations. Continue Entresto 24/26 2 tablets twice daily, continue spironolactone 20 mg daily, continue Lasix 40 mg IV twice daily, continue Jardiance 10 mg daily, continue Lipitor 80 mg nightly. Concern for anginal equivalent with her dyspnea. Plan for left heart cath today. Further management pending findings. Echocardiogram obtained with preserved EF Constipation: Initiate bowel regimen with docusate senna twice daily and MiraLAX every 6 hours as needed for constipation until having 1-2 soft stools daily. Class III obesity complicates all aspects of her care. NOELLE, likely due to HTN Avoid nephrotoxic medications Monitor renal function, CMP and magnesium ordered for the morning. Cr 1.4 this morning, repeat BMP this afternoon due to diuresis, close monitoring or electrolytes. DVT PPx Lovenox DNR but okay with Intubation PT/OT to evaluate for possible placement
[2023-05-13] MEDS: ATORVASTATIN 40MG TABLET 80 MG PO (21:01)
[2023-05-13] MEDS: CYCLOBENZAPRINE 10MG TABLET 5 MG PO (21:03)
[2023-05-13] MEDS: ACETAMINOPHEN 325MG TAB 650 MG PO (21:03)
[2023-05-13] MEDS: BUSPIRONE HCL 10 MG TABLET PO (21:04)
[2023-05-13] MEDS: MELATONIN 5MG TABLET 5 MG PO (21:04)
[2023-05-14] VITALS: PULSE 104
[2023-05-14 04:00] VITALS: BP 114/89; PULSE 83; PULSE 85; RESP 26; TEMP 36.8; O2SAT 92; BMI 38.1
[2023-05-14 07:58] LABS: Basophils # 0.1 K/mm3 (0-0.2); Basophils % 0.3 % (0.1-2.0); Eosinophils % 0.3 % (0.1-12.0); Hematocrit 37.6 % (37.0-47.0); Hemoglobin 12.7 g/dL (12.2-16.2); Lymphocytes % 14.8 % (10-50); Mean Corpuscular HGB Conc 33.9 g/dL (31.8-35.4); Mean Corpuscular Hemoglobin 28.6 pg (27.0-31.2); Mean Corpuscular Volume 84.4 fl (81-99); Monocytes # 1.1 K/mm3 (0.1-1.0); Neutrophils # 10.3 K/mm3 (1.8-7.8); Neutrophils % 76.5 % (37.0-80.0); Platelet Count 281 K/mm3 (142-424); Red Blood Count 4.46 M/mm3 (4.20-5.40); Red Cell Distribution Width 15.1 % (11.5-17.5); White Blood Count 13.5 K/mm3 (4.8-10.8)
[2023-05-14 08:00] VITALS: BP 131/91; PULSE 80; PULSE 83; RESP 19; TEMP 37.8; O2SAT 94
[2023-05-14 08:00] LABS: Calcium 9.4 mg/dl (8.4-10.2); Chloride 100 mmol/L (98-107); Creatinine Clearance Estimated 68 mL/min (50-200); Estimated Glomerular Filt Rate 33 ml/min (>60); GFR (African American) 40 ML/MIN (>60); Glucose 108 mg/dl (74-100); Potassium 3.2 mmoL/L (3.5-5.1); Sodium 137 mmol/L (136-145)
[2023-05-14 08:09] LABS: Anion Gap 10.2 mEq/L (5-15); Blood Urea Nitrogen 27 mg/dl (7-17); Carbon Dioxide 30 mmol/L (22.0-30.0)
[2023-05-14] MEDS: ACETAMINOPHEN 325MG TAB 650 MG PO (09:03)
[2023-05-14] MEDS: BUSPIRONE HCL 10 MG TABLET PO (09:04)
[2023-05-14] MEDS: FUROSEMIDE 40MG/4ML VIAL 40 MG IV (09:05)
[2023-05-14] MEDS: SACUBITRIL/VALSARTAN 24-26MG TABLET 2 EACH PO (09:05)
[2023-05-14] MEDS: ENOXAPARIN 150MG/ML SYRINGE 125 MG SQ (09:05)
[2023-05-14] MEDS: EMPAGLIFLOZIN 10MG TABLET 10 MG PO (09:05)
[2023-05-14] MEDS: ASPIRIN EC 81MG TABLET 81 MG PO (09:05)
[2023-05-14] MEDS: SPIRONOLACTONE 25MG TABLET 25 MG PO (09:05)
[2023-05-14] MEDS: SENNOSIDES 8.6MG/DOCUSATE 50MG TABLET 1 TAB PO (09:05)
[2023-05-14] MEDS: CLOPIDOGREL 75MG TAB 75 MG PO (09:18)
--- NOTE | 2023-05-14 09:24 | PC.NURSE ---
patient up to chair at this time
[2023-05-14 11:11] VITALS: BP 115/73; PULSE 58; RESP 19; TEMP 36.9; O2SAT 96
[2023-05-14 12:00] VITALS: PULSE 100
--- NOTE | 2023-05-14 13:05 | EXP.DC.SUM ---
General Admission date:: 05/11/23 Discharge date: 05/14/23 HPI HPI HPI: This is a 62-year-old female with a past medical history of hyper arthritis who presents to the emergency department today with shortness of breath. She also reports mid left thoracic back pain just underneath her scapula as well. She denies any cough or fever. She states that she has hypertension that is uncontrolled. Her systolic blood pressure is normally in the 190s. She reports that she been taking her blood pressure medicine as prescribed but never sees improvement. She also complains of bilateral lower extremity edema without pain. States that she has been on HCTZ without any changes. She denies any worsening of her bilateral lower extremities. Denies any extensive plane rides, car rides. Denies any coagulation defects or family history of. Emergency department workup significant for hypertensive urgency with systolic blood pressure in the 200s. Elevated D-dimer. Mildly elevated troponin 0.05. Elevated BNP of 592. CT scan of the chest notable for multiple bilateral segmental and subsegmental pulmonary emboli with no CT evidence of heart strain. Bilateral atrial enlargement suggestive of diastolic dysfunction. Mild fusiform aneurysmal dilatation of the ascending aorta measuring 4.2 cm. Cardiology consulted and will see patient in AM. Patient was given IV Lasix, labetalol and therapeutic Lovenox admitted to hospital service for further evaluation management Hospital Course Hospital Course Hospital Course: 62-year-old female with respiratory distress. Noted to have bilateral pulmonary emboli. Initiated on anticoagulation and admitted to medicine. Cardiology consulted. Appreciate their assistance in care. Continues to require inpatient management. Given subsegmental nature of PEs, no indication for thrombectomy. Continued anticoagulation. Transitioned to oral at time of discharge. Stable for discharge home with plan for outpatient follow-up with cardiology. Problems addressed as follows: Pulmonary embolism Cardiology consulted, discussed case this morning. PEs are subsegmental. No indication for thrombectomy at this time. Tolerated therapeutic Lovenox. Transition to Xarelto at discharge. Will continue 15 mg twice daily for 3 weeks transition to 20 mg daily thereafter. Follow-up with cardiology for further management as an outpatient. Hypertensive urgency NSTEMI HFpEF Cardiology consulted, appreciate their recommendations. Patient was taken for left heart cath. Status post stenting of her PDA and circumflex arteries. Initiated on aspirin and Plavix for dual antiplatelet therapy. Plan for triple therapy for continue Lipitor for hypercholesterolemia. Continue Entresto 2 tablets twice daily, continue spironolactone 50 mg daily, continue Lasix 40 mg IV twice daily, continue Jardiance 10 mg daily, continue Lipitor 80 mg nightly. Echo was obtained showing preserved EF. Constipation: Initiated on bowel regimen with docusate senna twice daily and MiraLAX as needed. NOELLE, likely due to HTN Creatinine elevated on admission. Improved during admission to 1.6. Appears to be around patient's baseline 1.4-1.6. Recommend repeat labs at follow-up Patient does not want placement, evaluated by therapy who recommended inpatient rehab. Family wants to take patient home, will refer to home health. Spent 30 minutes in discharge counseling, documentation, chart review, and direct care with patient. Exam Data for Last 24 hours Vital signs and Labs for Last 24 Hours: Temp Pulse Resp BP Pulse Ox O2 Del Method O2 Flow Rate 98.4 F 100 H 19 115/73 96 Room Air 1 05/14/23 11:11 05/14/23 12:00 05/14/23 11:11 05/14/23 11:11 05/14/23 11:11 05/14/23 11:11 05/14/23 11:00 Laboratory Results - last 24 hr 05/13/23 16:58: Activated Clotting Time 244 H* 05/14/23 06:50: WBC 13.5 H, RBC 4.46, Hgb 12.7, Hct 37.6, MCV 84.4, MCH 28.6, MCHC 33.9, RDW 15.1, Plt Count 281, MPV 8.0, Neut % (Auto) 76.5, Lymph % (Auto) 14.8, [place] % (Auto) 8.0, Eos % (Auto) 0.3, Baso % (Auto) 0.3, Neut # (Auto) 10.3 H, Lymph # (Auto) 2.0, [place] # (Auto) 1.1 H, Eos # (Auto) 0.0, Baso # (Auto) 0.1, Sodium 137, Potassium 3.2 L, Chloride 100, Carbon Dioxide 30, Anion Gap 10.2, BUN 27 H, Creatinine 1.60 H, Estimated Creat Clear 68, Estimated GFR 33 L, Est GFR ( Amer) 40 L D, Glucose 108 H, Calcium 9.4 I & O for Last 24 hours: Intake & Output 05/11/23 05/12/23 05/13/23 05/14/23 23:59 23:59 23:59 23:59 Intake Total 786 / 786 360 / 560 440 / 440 Output Total 0 / 0 2500 / 2500 700 / 700 500 / 500 Balance 0 / 40 -1714 / -1714 -340 / -140 -60 / -60 Weight 122.527 kg 122.527 kg 122.529 kg 116.845 kg Constitutional Constitutional: no acute distress, morbidly obese and chronically ill appearing *Routine HEENT Exam Head: Present normocephalic and atraumatic Eye: Present EOMI ENT: Present mucous membranes moist *Routine Neck Exam Neck: Present supple; Absent JVD *Routine Respiratory Exam Respiratory: Present crackles (In bases) and normal respiratory effort; Absent rhonchi or wheezes *Routine Cardiovascular Exam Cardiovascular: Present RRR *Routine Abdominal Exam Abdominal: Present soft and normoactive bowel sounds; Absent tenderness *Routine Extremities Exam Extremities: Absent cyanosis, clubbing or edema *Routine Skin Exam Skin: Present intact; Absent cyanosis or erythema *Routine Neurological Exam Neurological: Present alert, oriented X3, CN II-XII intact and moving all extremities; Absent altered mental status Comments: speech intelligible, but slow. Results Data Completed and Pending Labs on day of discharge: Labs from last 24 hours 05/14/23 05/13/23 06:50 16:58 WBC 13.5 H RBC 4.46 Hgb 12.7 Hct 37.6 MCV 84.4 MCH 28.6 MCHC 33.9 RDW 15.1 Plt Count 281 MPV 8.0 Neut % (Auto) 76.5 Lymph % (Auto) 14.8 [place] % (Auto) 8.0 Eos % (Auto) 0.3 Baso % (Auto) 0.3 Neut # (Auto) 10.3 H Lymph # (Auto) 2.0 [place] # (Auto) 1.1 H Eos # (Auto) 0.0 Baso # (Auto) 0.1 Activated Clotting Time 244 H* Sodium 137 Potassium 3.2 L Chloride 100 Carbon Dioxide 30 Anion Gap 10.2 BUN 27 H Creatinine 1.60 H Estimated Creat Clear 68 Estimated GFR 33 L Est GFR ( Amer) 40 L D Glucose 108 H Calcium 9.4 DS: Diagnosis Discharge Diagnosis (1) Pulmonary embolism: Status: Acute Code(s): I26.99 - Other pulmonary embolism without acute cor pulmonale Qualifiers: Acute cor pulmonale presence: without acute cor pulmonale Chronicity: acute Pulmonary embolism type: other Qualified Code(s): I26.99 - Other pulmonary embolism without acute cor pulmonale (2) (HFpEF) heart failure with preserved ejection fraction: Status: Acute Code(s): I50.30 - Unspecified diastolic (congestive) heart failure Qualifiers: Heart failure chronicity: acute on chronic Qualified Code(s): I50.33 - Acute on chronic diastolic (congestive) heart failure (3) Acute non-ST elevation myocardial infarction (NSTEMI): Status: Acute Code(s): I21.4 - Non-ST elevation (NSTEMI) myocardial infarction (4) Hypertensive urgency: Status: Acute Code(s): I16.0 - Hypertensive urgency (5) NOELLE (acute kidney injury): Status: Acute Code(s): N17.9 - Acute kidney failure, unspecified (6) Atypical angina: Status: Acute Code(s): I20.89 - Other forms of angina pectoris (7) Class 3 obesity: Status: Acute Code(s): E66.01 - Morbid (severe) obesity due to excess calories Meds Home Medications and Allergies Home Medications Medication Instructions Recorded Confirmed Type hydrochlorothiazide 25 mg tablet 25 mg PO DAILY 11/25/22 05/11/23 History olmesartan 40 mg tablet 40 mg PO DAILY 11/25/22 05/11/23 History oxybutynin chloride 10 mg 10 mg PO DAILY 11/25/22 05/11/23 History tablet,extended release 24 hr rosuvastatin 40 mg tablet 40 mg PO DAILY 11/25/22 05/11/23 History buspirone 10 mg tablet 10 mg PO BID 05/13/23 05/13/23 History carvedilol 12.5 mg tablet 12.5 mg PO BIDWMEAL 05/13/23 05/13/23 History fluticasone propionate 50 2 spray intranasal DAILY 05/13/23 05/13/23 History mcg/actuation nasal spray,suspension (Flonase Allergy Relief) hydralazine 25 mg tablet 25 mg PO BID 05/13/23 05/13/23 History aspirin 81 mg tablet,delayed 81 mg PO DAILY 30 days #30 tabs 05/14/23 Rx release clopidogrel 75 mg tablet 75 mg PO DAILY 30 days #30 tabs 05/14/23 Rx empagliflozin 10 mg tablet 10 mg PO DAILY 30 days #30 tabs 05/14/23 Rx (Jardiance) New Prescriptions to Start Prescriptions: Raúl Hines clopidogrel Raúl Brown empagliflozin [Jardiance] Raúl Brown Allergies Allergy/AdvReac Type Severity Reaction Status Date / Time No Known Drug Allergies Allergy Verified 11/25/22 13:26 Discharge Plan Disposition Patient Disposition: Home Health Service Condition: Fair Discharge Order Discharge Orders: Discharge Order (Routine); Ordered 05/14/23 Ordered By: Raúl Brown Follow up Plan Follow up with: Elgin Davis MD [Staff Physician] - 05/20/23 1:45 pm Prescriptions/Medication Reconciliation: New clopidogrel 75 mg Tablet 75 mg PO DAILY 30 Days Qty: 30 0RF aspirin 81 mg Tablet,Delayed Release (Dr/Ec) 81 mg PO DAILY 30 Days Qty: 30 0RF Jardiance 10 mg Tablet 10 mg PO DAILY 30 Days Qty: 30 0RF Continued oxybutynin chloride 10 mg tablet extended release 24hr 10 mg PO DAILY hydrochlorothiazide 25 mg tablet 25 mg PO DAILY olmesartan 40 mg tablet 40 mg PO DAILY rosuvastatin 40 mg tablet 40 mg PO DAILY carvedilol 12.5 mg Tablet 12.5 mg PO BIDWMEAL hydralazine 25 mg tablet 25 mg PO BID buspirone 10 mg Tablet 10 mg PO BID fluticasone propionate [Flonase Allergy Relief] 50 mcg/actuation [place],Suspension 2 spray INTRANASAL DAILY Rx Instructions: Administer 1 spray into each nostril Problem Reconciliation Problems Reviewed?: Yes Patient Discharge Instructions ACTIVITY: Continue current activity and Ambulate as tolerated DIET: continue same diet Patient Instructions: Heart-Healthy Diet, Two Gram Sodium Diet Providers Primary Care Provider: Provider,Referral Admit Provider: Deb Brar Attending Provider: Deb Brar
--- NOTE | 2023-05-14 13:17 | P.PN_ITS ---
Subjective Subjective Date: 05/14/23 Time: 10:30 Principal diagnosis: SOB, PEs Interval history: This is a 62-year-old female who presented to the emergency department complaints of shortness of breath. She was found to have subsegmental and segmental pulmonary emboli. No RV strain was noted on CT or echocardiogram. The patient also had some underlying HFpEF as well as diastolic dysfunction and has been diuresed with IV Lasix. She had coronary calcifications noted on CT with no improvement in her shortness of breath with treatment of the PEs and her congestive heart failure. The patient underwent left cardiac catheterization yesterday and was found to have significant coronary artery disease. She underwent stenting to the PDA x 1 stent and stenting to the circumflex x 1 stent. She had normal renal arteries. She is on aspirin and Plavix for dual antiplatelet therapy. This morning the patient states that her shortness of breath has significantly improved. She states that her lower extremity edema has significantly improved. She denies any chest pain or pressure. She denies any fever, chills, nausea, vomiting or diarrhea. She states that she feels night and day different today than she did yesterday. She still has some underlying shortness of breath but it has significantly improved. Exam Data for Last 24 hours Vital signs and Labs for Last 24 Hours: Temp Pulse Resp BP Pulse Ox O2 Del Method O2 Flow Rate 98.4 F 100 H 19 115/73 96 Room Air 1 05/14/23 11:11 05/14/23 12:00 05/14/23 11:11 05/14/23 11:11 05/14/23 11:11 05/14/23 11:11 05/14/23 11:00 Laboratory Results - last 24 hr 05/13/23 16:58: Activated Clotting Time 244 H* 05/14/23 06:50: WBC 13.5 H, RBC 4.46, Hgb 12.7, Hct 37.6, MCV 84.4, MCH 28.6, MCHC 33.9, RDW 15.1, Plt Count 281, MPV 8.0, Neut % (Auto) 76.5, Lymph % (Auto) 14.8, [place] % (Auto) 8.0, Eos % (Auto) 0.3, Baso % (Auto) 0.3, Neut # (Auto) 10.3 H, Lymph # (Auto) 2.0, [place] # (Auto) 1.1 H, Eos # (Auto) 0.0, Baso # (Auto) 0.1, Sodium 137, Potassium 3.2 L, Chloride 100, Carbon Dioxide 30, Anion Gap 10.2, BUN 27 H, Creatinine 1.60 H, Estimated Creat Clear 68, Estimated GFR 33 L, Est GFR ( Amer) 40 L D, Glucose 108 H, Calcium 9.4 I & O for Last 24 hours: Intake & Output 05/11/23 05/12/23 05/13/23 05/14/23 23:59 23:59 23:59 23:59 Intake Total 786 / 786 360 / 560 440 / 440 Output Total 0 / 0 2500 / 2500 700 / 700 500 / 500 Balance 0 / 40 -1714 / -1714 -340 / -140 -60 / -60 Weight 270 lb 2 oz 270 lb 2.012 oz 270 lb 2.083 oz 257 lb 9.6 oz Constitutional Constitutional: no acute distress and morbidly obese *Routine HEENT Exam Head: Present normocephalic and atraumatic ENT: Present mucous membranes moist *Routine Neck Exam Neck: Present supple, full ROM and normal carotid upstroke; Absent JVD, carotid bruit or lymphadenopathy *Routine Respiratory Exam Respiratory: Present CTA bilaterally, normal respiratory effort, able to speak in complete sentences and symmetric chest movement *Routine Cardiovascular Exam Cardiovascular: Present RRR, Normal S1 and Normal S2; Absent murmur or gallop *Routine Abdominal Exam Abdominal: Present soft and normoactive bowel sounds; Absent tenderness, distended or organomegaly *Routine Extremities Exam Extremities: Present edema (Trace to 1+ bilateral lower extremity edema), full ROM, pulses intact and normal capillary refill; Absent cyanosis or clubbing *Routine Skin Exam Skin: Present intact and warm; Absent erythema *Routine Neurological Exam Neurological: Present alert, oriented X3 and CN II-XII intact; Absent sensory deficit or motor deficit Routine Psychiatric Exam Psychiatric: Present normal affect Progress Note: A&P Assessment and plan (1) CAD in [place] artery: Status: Acute (2) Pulmonary embolism: Status: Acute (3) (HFpEF) heart failure with preserved ejection fraction: Status: Acute (4) Acute non-ST elevation myocardial infarction (NSTEMI): Status: Acute (5) NOELLE (acute kidney injury): Status: Acute (6) Class 3 obesity: Status: Acute (7) Diastolic dysfunction: Status: Acute (8) HLD (hyperlipidemia): Status: Acute (9) Diastolic dysfunction: Status: Acute (10) Thoracic aneurysm without mention of rupture: Status: Acute (11) Coronary artery calcification seen on CT scan: Status: Acute (12) Shortness of Breath: Status: Acute Assessment and Plan Assessment and Plan for All Diagnoses:: Plan: 1. This is a 62-year-old who was admitted for bilateral PEs. The patient is currently on therapeutic Lovenox. Will switch her over to Xarelto 15 mg p.o. twice daily for 3 weeks then Xarelto 20 mg daily thereafter for treatment of the PEs. 2. The patient does have coronary artery disease and is status post stenting to the PDA and circumflex arteries. She will be on Plavix and aspirin for dual antiplatelet therapy. 3. The patient will be on triple therapy with aspirin, Plavix and Xarelto. She will need to be on the aspirin 81 mg daily for 7 days then she can discontinue the aspirin and remain on the Plavix 75 mg daily and Xarelto 15 mg twice daily for 3 weeks then 20 mg daily thereafter. 4. Coronary artery disease is likely stable. 5. Her blood pressure is well-controlled. 6. Her LDL goal is less than 55. Her LDL is 149. She has been started on Lipitor. 7. The patient does have HFpEF and diastolic dysfunction. We can convert her Lasix over to Lasix 40 mg p.o. twice daily for continued diuresis. 8. Continue spironolactone at 50 mg daily. 9. Continue Jardiance and Entresto for HFpEF. 10. The patient is stable for discharge home today from a cardiac standpoint. The patient will need to follow-up in cardiology clinic next week. Thank you for the opportunity to help participate in the care of this patient. All recommendations and orders are per Dr. Post.
--- NOTE | 2023-05-15 16:14 | CARE MANAGER ---
Addendum entered by Annette Garner RN 05/15/23 16:49: Patient's insurance did not require an auth for medication. Contacted [facility] and they had sent it through on her old insurance policy. Ran on [employer] and cost will be about $47. Contacted patient and let her know they would have it ready and the approximate cost. TEREZA Yu Original Note: Called and spoke with patient regarding recent discharge. Patient stated that she is doing well, has started new medication except Jardiance which needs a prior auth. She was aware of scheduled f/u appts. Patient had no concerns at time of call. CM will work on getting PA for Jardiance.
--- NOTE | 2023-08-21 13:14 | CARE MANAGER ---
Laboratory Tests 05/11/23 05/11/23 05/11/23 15:49 15:59 16:05 WBC 13.5 H RBC 4.47 Hgb 12.6 Hct 37.7 MCV 84.3 MCH 28.3 MCHC 33.6 RDW 15.1 Plt Count 246 MPV 7.9 Neut % (Auto) 83.5 H Lymph % (Auto) 10.6 Dale % (Auto) 4.6 Eos % (Auto) 1.0 Baso % (Auto) 0.4 Neut # (Auto) 11.3 H Lymph # (Auto) 1.4 [place] # (Auto) 0.6 Eos # (Auto) 0.1 Baso # (Auto) 0.1 Total Counted Neutrophils % (Manual) Band Neutrophils % Lymphocytes % (Manual) Monocytes % (Manual) Eosinophils % (Manual) Platelet Estimate RBC Morphology Activated Clotting Time D-Dimer 2.68 H VBG pH 7.36 VBG pCO2 40.7 VBG pO2 37.1 VBG HCO3 22.3 L VBG Total CO2 23.6 VBG O2 Saturation 70.9 H VBG Base Excess -3.2 L Sodium 137 Potassium 3.7 Chloride 106 Carbon Dioxide 28 Anion Gap 6.7 BUN 19 H Creatinine 1.30 H Estimated Creat Clear 89 Estimated GFR 42 L Est GFR ( Amer) 50 L Glucose 122 H Hemoglobin A1c Lactate 0.9 Calcium 9.6 Magnesium 2.0 Total Bilirubin 0.8 Direct Bilirubin Conjugated Bilirubin Indirect Bilirubin Unconjugated Bilirubin AST 29 ALT 22 Alkaline Phosphatase 161 H Troponin I 0.05 H NT-Pro-B Natriuret Pep 592 H Total Protein 8.0 Albumin 4.1 Globulin 3.9 H Albumin/Globulin Ratio 1.1 Triglycerides Cholesterol LDL Cholesterol Direct VLDL Cholesterol HDL Cholesterol Cholesterol/HDL Ratio Procalcitonin TSH 1.42 Free T4 Thyroxine (T4) 10.8 SARS-CoV-2 (PCR) Not detected Influenza A Untype (PCR) Not detected Influenza Type B (PCR) Not detected 05/11/23 05/12/23 05/13/23 19:50 08:10 05:46 WBC 11.5 H 16.9 H D RBC 4.04 L 4.52 Hgb 11.7 L 12.9 D Hct 34.4 L 37.7 MCV 85.1 83.5 MCH 29.0 28.6 MCHC 34.0 34.2 RDW 15.0 15.1 Plt Count 244 269 MPV 8.4 8.4 Neut % (Auto) 78.4 81.4 H Lymph % (Auto) 13.9 11.2 [place] % (Auto) 6.2 6.5 Eos % (Auto) 1.1 0.6 Baso % (Auto) 0.4 0.3 Neut # (Auto) 9.0 H 13.7 H Lymph # (Auto) 1.6 1.9 [place] # (Auto) 0.7 1.1 H Eos # (Auto) 0.1 0.1 Baso # (Auto) 0.0 0.1 Total Counted 100 Neutrophils % (Manual) 77 H Band Neutrophils % 3.0 Lymphocytes % (Manual) 14 Monocytes % (Manual) 5 Eosinophils % (Manual) 1 Platelet Estimate Normal RBC Morphology Normal Activated Clotting Time D-Dimer VBG pH VBG pCO2 VBG pO2 VBG HCO3 VBG Total CO2 VBG O2 Saturation VBG Base Excess Sodium 141 135 L Potassium 3.4 L 3.3 L Chloride 104 100 Carbon Dioxide 27 30 Anion Gap 13.4 8.3 BUN 22 H 20 H Creatinine 1.50 H 1.40 H Estimated Creat Clear 76 82 Estimated GFR 35 L 38 L Est GFR ( Amer) 43 L 46 L Glucose 106 H 119 H Hemoglobin A1c 5.5 Lactate Calcium 9.5 9.5 Magnesium 2.1 Total Bilirubin 0.8 0.9 Direct Bilirubin 0.2 Conjugated Bilirubin 0.0 Indirect Bilirubin 0.7 Unconjugated Bilirubin 0.7 AST 28 35 ALT 21 28 D Alkaline Phosphatase 154 H 164 H Troponin I 0.05 H NT-Pro-B Natriuret Pep Total Protein 7.5 8.2 Albumin 3.9 4.1 Globulin 3.6 H Albumin/Globulin Ratio 1.1 Triglycerides 212 H 153 H Cholesterol 263 H 279 H LDL Cholesterol Direct 138.18 H 149.53 H VLDL Cholesterol 42 H 31 HDL Cholesterol 35 L 40 Cholesterol/HDL Ratio 7.5 H 7.0 H Procalcitonin 0.128 TSH 1.98 D Free T4 1.34 Thyroxine (T4) SARS-CoV-2 (PCR) Influenza A Untype (PCR) Influenza Type B (PCR) 05/13/23 05/13/23 05/14/23 11:59 16:58 06:50 WBC 17.5 H 13.5 H RBC 4.41 4.46 Hgb 12.6 12.7 Hct 37.3 37.6 MCV 84.6 84.4 MCH 28.6 28.6 MCHC 33.8 33.9 RDW 15.1 15.1 Plt Count 276 281 MPV 8.0 8.0 Neut % (Auto) 79.1 76.5 Lymph % (Auto) 11.7 14.8 Dale % (Auto) 7.5 8.0 Eos % (Auto) 1.3 0.3 Baso % (Auto) 0.4 0.3 Neut # (Auto) 13.8 H 10.3 H Lymph # (Auto) 2.1 2.0 [place] # (Auto) 1.3 H 1.1 H Eos # (Auto) 0.2 0.0 Baso # (Auto) 0.1 0.1 Total Counted Neutrophils % (Manual) Band Neutrophils % Lymphocytes % (Manual) Monocytes % (Manual) Eosinophils % (Manual) Platelet Estimate RBC Morphology Activated Clotting Time 244 H* D-Dimer VBG pH VBG pCO2 VBG pO2 VBG HCO3 VBG Total CO2 VBG O2 Saturation VBG Base Excess Sodium 138 137 Potassium 3.1 L 3.2 L Chloride 100 100 Carbon Dioxide 29 30 Anion Gap 12.1 10.2 BUN 26 H D 27 H Creatinine 2.00 H D 1.60 H Estimated Creat Clear 57 68 Estimated GFR 25 L 33 L Est GFR ( Amer) 31 L D 40 L D Glucose 126 H 108 H Hemoglobin A1c Lactate Calcium 9.5 9.4 Magnesium Total Bilirubin Direct Bilirubin Conjugated Bilirubin Indirect Bilirubin Unconjugated Bilirubin AST ALT Alkaline Phosphatase Troponin I NT-Pro-B Natriuret Pep Total Protein Albumin Globulin Albumin/Globulin Ratio Triglycerides Cholesterol LDL Cholesterol Direct VLDL Cholesterol HDL Cholesterol Cholesterol/HDL Ratio Procalcitonin TSH Free T4 Thyroxine (T4) SARS-CoV-2 (PCR) Influenza A Untype (PCR) Influenza Type B (PCR)
== END 2023-05-14 16:06 | disposition home health service (06) | DRG 981 ==
LOC: ER 16:13 → ICU 18:39 → 2ND 05-12 20:33
PROVIDERS: Internal Medicine; Nurse Practitioner Acute Care; Nurse Practitioner Family; Admitting Provider Internal Medicine; Emergency Provider Emergency Medicine; Visit Provider Internal Medicine
PROC: 027135Z Dilation of Coronary Artery, Two Arteries with Two Drug-eluting Intraluminal Devices, Percutaneous Approach (ICD-10-PCS; principal; 2023-05-13 15:00)
DX: I26.99 Other pulmonary embolism without acute cor pulmonale (principal); I21.A1 Myocardial infarction type 2; I50.33 Acute on chronic diastolic (congestive) heart failure; N17.9 Acute kidney failure, unspecified; I16.0 Hypertensive urgency; I25.119 Atherosclerotic heart disease of native coronary artery with unspecified angina pectoris; F41.9 Anxiety disorder, unspecified; E78.5 Hyperlipidemia, unspecified; M19.90 Unspecified osteoarthritis, unspecified site; I11.0 Hypertensive heart disease with heart failure; I71.21 Aneurysm of the ascending aorta, without rupture; I15.0 Renovascular hypertension
CPT/HCPCS: 36252; 36415; 71045; 71275; 80048; 80053; 80061; 80076; 82803; 83036; 83605; 83735; 83880; 84145; 84436; 84439; 84443; 84484; 85007; 85025; 85347; 85378; 87636; 92928; 92929; 92978; 93005; 93306; 93458; 93970; 97163; 97166; 97530; 99152; 99153; 99291; C1725; C1769; C1876; C9600; C9601; J1644; J2405; Q9967

== ENCOUNTER 2023-06-20 11:02 | Outpatient (CLI) | payer BC, MEDICARE, SELFPAY ==
[2023-06-20 11:30] LABS: Basophils % 0.4 % (0.1-2.0); Eosinophils # 0.3 K/mm3 (0.0-0.4); Eosinophils % 3.4 % (0.1-12.0); Hematocrit 36.4 % (37.0-47.0); Hemoglobin 12.4 g/dL (12.2-16.2); Lymphocytes # 1.9 K/mm3 (0.7-4.5); Lymphocytes % 21.7 % (10-50); Mean Corpuscular HGB Conc 34.1 g/dL (31.8-35.4); Mean Corpuscular Volume 84.9 fl (81-99); Mean Platelet Volume 8.1 fl (7.4-10.4); Monocytes # 0.6 K/mm3 (0.1-1.0); Monocytes % 7.1 % (1.7-9.3); Neutrophils # 5.8 K/mm3 (1.8-7.8); Neutrophils % 67.4 % (37.0-80.0); Platelet Count 254 K/mm3 (142-424); Red Blood Count 4.29 M/mm3 (4.20-5.40); Red Cell Distribution Width 15.6 % (11.5-17.5); White Blood Count 8.6 K/mm3 (4.8-10.8)
[2023-06-20 11:53] LABS: Alanine Aminotransferase 43 U/L (12-78); Albumin Level 4.2 g/dl (3.5-5.0); Alkaline Phosphatase 151 U/L (38-126); Anion Gap 17.1 mEq/L (5-15); Aspartate Amino Transferase 34 U/L (14-36); Bilirubin,Direct 0.3 mg/dl (0.0-0.4); Bilirubin,Indirect 0.3 mg/dL (0.0-0.9); Bilirubin,Total 0.6 mg/dl (0.2-1.3); Bilirubin,Unconjugated 0.3 mg/dL (0.0-1.1); Blood Urea Nitrogen 69 mg/dl (7-17); Calcium 10.5 mg/dl (8.4-10.2); Carbon Dioxide 22 mmol/L (22.0-30.0); Chloride 107 mmol/L (98-107); Estimated Glomerular Filt Rate 20 ml/min (>60); GFR (African American) 24 ML/MIN (>60); Glucose 95 mg/dl (74-100); Potassium 4.1 mmoL/L (3.5-5.1); Sodium 142 mmol/L (136-145); Total Protein,Serum 7.3 g/dl (6.3-8.2)
[2023-06-20 12:09] LABS: T4 (Thyroxine) 10.4 ug/dl (5.53-11.0)
[2023-06-20 12:23] LABS: Thyroid Stimulating Hormone 2.36 uIU/mL (0.465-4.68)
== END 2023-06-20 23:59 ==
LOC: LAB.DROPOF 11:04
PROVIDERS: Visit Provider Internal Medicine
DX: I11.0 Hypertensive heart disease with heart failure (principal); I50.21 Acute systolic (congestive) heart failure
CPT/HCPCS: 80048; 80076; 84436; 84443; 85025

== ENCOUNTER 2023-06-24 13:10 | Outpatient (CLI) | payer BC, MEDICARE, SELFPAY ==
[2023-06-24 13:32] LABS: Chloride 106 mmol/L (98-107); Potassium 3.9 mmoL/L (3.5-5.1); Sodium 140 mmol/L (136-145)
[2023-06-24 13:35] LABS: Anion Gap 11.9 mEq/L (5-15); Blood Urea Nitrogen 63 mg/dl (7-17); Calcium 10.5 mg/dl (8.4-10.2); Carbon Dioxide 26 mmol/L (22.0-30.0); Estimated Glomerular Filt Rate 15 ml/min (>60); GFR (African American) 18 ML/MIN (>60); Glucose 132 mg/dl (74-100)
== END 2023-06-24 23:59 ==
PROVIDERS: PCP Pediatrics; Visit Provider Physician Assistant
DX: I25.10 Atherosclerotic heart disease of native coronary artery without angina pectoris (principal); E66.01 Morbid (severe) obesity due to excess calories; I51.89 Other ill-defined heart diseases
CPT/HCPCS: 36415; 80048

== ENCOUNTER 2023-07-01 12:31 | Outpatient (CLI) | payer BC, MEDICARE, SELFPAY ==
[2023-07-01 14:17] LABS: Anion Gap 12.5 mEq/L (5-15); Blood Urea Nitrogen 53 mg/dl (7-17); Calcium 10.2 mg/dl (8.4-10.2); Carbon Dioxide 24 mmol/L (22.0-30.0); Chloride 109 mmol/L (98-107); Estimated Glomerular Filt Rate 27 ml/min (>60); GFR (African American) 33 ML/MIN (>60); Glucose 94 mg/dl (74-100); Potassium 4.5 mmoL/L (3.5-5.1); Sodium 141 mmol/L (136-145)
== END 2023-07-01 23:59 ==
LOC: LAB 12:32
PROVIDERS: PCP Pediatrics; Visit Provider Physician Assistant
DX: N17.9 Acute kidney failure, unspecified (principal)
CPT/HCPCS: 36415; 80048

== ENCOUNTER 2023-07-22 12:22 | Outpatient (CLI) | payer BC, MEDICARE, SELFPAY ==
[2023-07-22 14:41] LABS: Anion Gap 14.1 mEq/L (5-15); Blood Urea Nitrogen 24 mg/dl (7-17); Carbon Dioxide 22 mmol/L (22.0-30.0); Chloride 110 mmol/L (98-107); Estimated Glomerular Filt Rate 35 ml/min (>60); GFR (African American) 43 ML/MIN (>60); Glucose 102 mg/dl (74-100); Potassium 4.1 mmoL/L (3.5-5.1); Sodium 142 mmol/L (136-145)
[2023-07-22 15:43] LABS: Total Protein,Serum 6.8 g/dl (6.3-8.2)
[2023-07-23 15:38] LABS: Albumin 3.3 g/dL (2.9-4.4); Alpha-1-Globulin 0.3 g/dL (0.0-0.4); Gamma Globulin 1.1 g/dL (0.4-1.8); Immunoglobulin A, Qn 512 mg/dL (87-352); Immunoglobulin G, Qn 1150 mg/dL (586-1602); Immunoglobulin M, Qn 187 mg/dL (26-217); Protein, Total 6.9 g/dL (6.0-8.5)
[2023-07-26 12:36] LABS: Free Kappa Lt Chains 61.9; PDF SCANNED IMAGE
== END 2023-07-22 23:59 ==
PROVIDERS: Nurse Practitioner; PCP Pediatrics; Visit Provider Internal Medicine
DX: I25.10 Atherosclerotic heart disease of native coronary artery without angina pectoris (principal); I10 Essential (primary) hypertension; R93.1 Abnormal findings on diagnostic imaging of heart and coronary circulation; N17.9 Acute kidney failure, unspecified; I71.21 Aneurysm of the ascending aorta, without rupture; I50.33 Acute on chronic diastolic (congestive) heart failure; I26.99 Other pulmonary embolism without acute cor pulmonale; I48.91 Unspecified atrial fibrillation; M48.10 Ankylosing hyperostosis [Forestier], site unspecified; E66.01 Morbid (severe) obesity due to excess calories; Z79.01 Long term (current) use of anticoagulants
CPT/HCPCS: 36415; 80048; 82784; 83883; 84155; 84165; 86334

== ENCOUNTER 2023-07-24 14:58 | Outpatient (CLI) | payer BC, MEDICARE, SELFPAY ==
[2023-07-28 11:13] LABS: Albumin, U 26.9 % (.); Alpha-1-Globulin, U 2.5 % (.); Alpha-1-Globulin, U 3.6 % (.); Alpha-2-Globulin, U 9.6 % (.); Beta Globulin, U 39.7 % (.); Beta Globulin, U 47.7 % (.); Gamma Globulin, U 17.8 % (.); Gamma Globulin, U 18.1 % (.); M-Spike, % Comment: % (Not Observed); Prot,24hr calculated 137 mg/24 hr (30-150); Protein,Total,Urine 17.1 mg/dL (Not Estab.)
[2023-07-28 12:50] LABS: PDF: SCANNED IMAGE
== END 2023-07-24 23:59 ==
LOC: LAB.DROPOF 14:59
PROVIDERS: Nurse Practitioner; PCP Pediatrics; Visit Provider Physician Assistant
DX: N17.9 Acute kidney failure, unspecified (principal); I25.10 Atherosclerotic heart disease of native coronary artery without angina pectoris; E66.01 Morbid (severe) obesity due to excess calories; I50.33 Acute on chronic diastolic (congestive) heart failure; I71.21 Aneurysm of the ascending aorta, without rupture; I51.89 Other ill-defined heart diseases; I50.9 Heart failure, unspecified; I26.99 Other pulmonary embolism without acute cor pulmonale; I10 Essential (primary) hypertension; Z79.01 Long term (current) use of anticoagulants; M48.10 Ankylosing hyperostosis [Forestier], site unspecified; I48.91 Unspecified atrial fibrillation; R93.1 Abnormal findings on diagnostic imaging of heart and coronary circulation; Z68.37 Body mass index [BMI] 37.0-37.9, adult
CPT/HCPCS: 84156; 84166; 86335

== ENCOUNTER 2023-08-06 09:33 | Outpatient (CLI) | payer BC, MEDICARE, SELFPAY ==
--- NOTE | 2023-08-06 09:34 | MR_ITS ---
APPROVED REPORT [employer]n Feeder: CLINICAL INDICATION Increased LV wall thickness TECHNIQUE Image Acquisition: Cardiac magnetic resonance (CMR) was performed on Siemens Espree MRI 1.5T scanner. Software platform sequences were performed using the Siemens blabfeed MR B19 platform. A set of three-plane, low-resolution, large [id number] localizers were initially acquired. Then axial, coronal, sagittal TrueFISP, as well as axial HASTE images, were obtained. These were followed by gated TrueFISP breathold cinematic sequences obtained in the short axis with 8 mm slices and 2 mm gaps, 2-chamber (vertical long axis), 3-chamber, 4-chamber (horizontal long axis). A bolus of contrast was injected intravenously with first-pass sequences obtained in the short axis and four-chamber planes. After approximately 10 minutes, a TI probe operator sequence was performed to determine the optimal TI time. Using the optimized TI time, delayed contrast enhancement segmented inversion???recovery TurboFLASH sequences were obtained in the short axis, 2-chamber, 3-chamber, and 4-chamber projections. 2D-velocity phase mapping was performed. Functional parameters were calculated by offline analysis on an independent workstation ([employer]). Contrast: ProHance??? (Gadoteridol) FINDINGS MORPHOLOGY AND FUNCTION Left ventricle: The left ventricle is normal in size. The indexed left ventricular end-diastolic volume (LVEDVi) is 69 ml/m2 (reference range 57-105 ml/m2 in males, 56-96 ml/m2 in females). Normal left ventricular systolic function is present. There is increased left ventricular wall thickness (maximum LV wall thickness 13.9 mm). There are no regional wall motion abnormalities noted. LVEF is calculated at 68.7% (reference range 57-77%). Right ventricle: The right ventricle is normal in size. The indexed right ventricular end-diastolic volume (RVEDVi) is 71 ml/m2 (reference range 61-121 ml/m2 in males, 48-112 ml/m2 in females). Normal right ventricular systolic function is present. RVEF is calculated at 52.9% (reference range 52-72% in males, 51-71% in females). Atria: The left atrium is normal in size. The maximum indexed left atrial volume is 48 ml/m2 (reference range 26-52 ml/m2 in males, 27-53 ml/m2 in females). The right atrium is normal in size. The maximum indexed right atrial volume is 25 ml/m2 (reference range 18-90 ml/m2). Aorta: The diameter of the aortic annulus is normal, measuring 24 mm (coronal view reference range 21-30 mm in males, 19-27 mm in females). The diameter of the aortic sinus is normal, measuring 34 mm (coronal view reference range 25-42 mm in males, 24-36 mm in females). The diameter of the sinotubular junction is mildly increased, measuring 31 mm (coronal view reference range 18-32 mm in males, 18-28 mm in females). The diameters of the ascending and descending thoracic aorta are normal. Main pulmonary artery: The main pulmonary artery diameter is normal. Pericardium: The pericardial thickness is normal. The pericardial thickness measures 3.4 cm (normal < 4.0 cm). There is no pericardial effusion. VALVES The valvular morphologies in the visualized sequences appear normal. There is no significant valvular stenosis or regurgitation of the mitral, aortic, tricuspid, or pulmonic valve noted visually. Systolic anterior motion of the mitral valve is not visualized. TISSUE CHARACTERIZATION Resting Perfusion: Normal myocardial blood flow at rest. No evidence of resting hypoperfusion. Myocardial Fibrosis and/or edema: There is isolated faint focus of mid-myocardial LGE noted in the basal anteroseptal LV wall. This finding is non-specific. OTHER No other significant findings are noted. However, this exam is focused on the cardiac structure and function. IMPRESSION Normal LV size with normal LV systolic function. LVEDVi= 69 ml/m2 and LVEF= 68.7%. Increased LV wall thickness. Maximum LV wall thickness measuring 13.9 mm. Normal RV size with normal RV systolic function. RVEDVi= 71 ml/m2 and RVEF= 52.9%. No atrial enlargement. There is isolated faint focus of mid-myocardial LGE noted in the basal anteroseptal LV wall. This finding is non-specific. Perfusion analysis demonstrates normal blood flow at rest with no evidence of resting hypoperfusion. Overall, this CMR demonstrates normal biventricular systolic function. There is increased LV wall thickness, but findings do not meet criteria CMR criteria for HCM.. Overall, no evidence of infiltrative disease. COMPARISON None CRITICAL RESULT None COMMUNICATION Per this written report The findings of this cardiac MR were reviewed, reported, and signed by Benjamin Post MD ([employer]). Conclusion Electronically signed by : Kelsy Post MD 08/25/2023 00:14:24
[2023-08-06] MEDS: 0.9 % SODIUM CHLORIDE 50 ML VIAL IV (11:54)
[2023-08-06] MEDS: GADOTERIDOL INJ 17ML SYRINGE 25 ML IV (11:54)
== END 2023-08-06 23:59 ==
LOC: RAD 09:34
PROVIDERS: PCP Pediatrics; Visit Provider Obstetrics & Gynecology Gynecologic Oncology
DX: I51.7 Cardiomegaly (principal)
CPT/HCPCS: 75561; A9576

== ENCOUNTER 2023-08-21 09:25 | Outpatient (CLI) | payer BC, MEDICARE, SELFPAY ==
--- NOTE | 2023-08-21 09:25 | CT_ITS ---
FINAL REPORT TECHNIQUE: The patient was injected with IV contrast. Axial images were obtained through the chest in a PE protocol. 3-D reconstruction images were also performed. Individualized dose reduction techniques using automated exposure control or adjustment of the MA and/or KV according to patient's size were employed. CLINICAL HISTORY: hx of pe COMPARISON: 05/11/2023 FINDINGS: Mediastinal vasculature is adequately opacified. No pulmonary artery filling defects are identified to suggest PE. The previously noted emboli from May 2023 have resolved. There is no aortic dissection. There is no axillary adenopathy. There is no hilar or mediastinal adenopathy. The heart size is normal. There is no pericardial or pleural effusion. Limited images of the upper abdomen are unremarkable. Mild scarring is present in the lung bases. IMPRESSION: No pulmonary embolus or dissection. The previously noted emboli on the prior CT of May 2023 have resolved, and no new emboli are noted. Mild scarring in the lung bases. Reviewed, Interpreted and Dictated by Shahid Laura MD Transcribed by Susy Minor Authenticated and [facility]
[2023-08-21] MEDS: IOPAMIDOL-370 (76%);100ML BOTTLE 70 ML IV (10:05)
[2023-08-21] MEDS: 0.9 % SODIUM CHLORIDE 50 ML VIAL IV (10:05)
[2023-08-21] MEDS: SODIUM CHLORIDE 0.9% 10ML SYR (RAD ONLY) 10 ML IV (10:06)
== END 2023-08-21 23:59 | disposition home or self-care (01) ==
LOC: RAD 09:25
PROVIDERS: PCP Pediatrics; Visit Provider Nurse Practitioner
DX: I25.10 Atherosclerotic heart disease of native coronary artery without angina pectoris (principal); I71.21 Aneurysm of the ascending aorta, without rupture; I50.33 Acute on chronic diastolic (congestive) heart failure; I26.99 Other pulmonary embolism without acute cor pulmonale; I11.0 Hypertensive heart disease with heart failure; M48.10 Ankylosing hyperostosis [Forestier], site unspecified; N17.9 Acute kidney failure, unspecified; E66.01 Morbid (severe) obesity due to excess calories; Z68.37 Body mass index [BMI] 37.0-37.9, adult
CPT/HCPCS: 71275; Q9967

== ENCOUNTER 2023-09-16 13:43 | Outpatient (CLI) | payer BC, MEDICARE, SELFPAY ==
[2023-09-16 14:33] LABS: Basophils # 0.1 K/mm3 (0-0.2); Basophils % 0.8 % (0.1-2.0); Eosinophils # 0.2 K/mm3 (0.0-0.4); Eosinophils % 2.5 % (0.1-12.0); Hematocrit 38.1 % (37.0-47.0); Hemoglobin 12.5 g/dL (12.2-16.2); Lymphocytes # 1.5 K/mm3 (0.7-4.5); Lymphocytes % 18.1 % (10-50); Mean Corpuscular HGB Conc 32.9 g/dL (31.8-35.4); Mean Corpuscular Hemoglobin 29.4 pg (27.0-31.2); Mean Corpuscular Volume 89.3 fl (81-99); Mean Platelet Volume 7.6 fl (7.4-10.4); Monocytes # 0.5 K/mm3 (0.1-1.0); Monocytes % 5.6 % (1.7-9.3); Neutrophils # 6.2 K/mm3 (1.8-7.8); Platelet Count 282 K/mm3 (142-424); Red Blood Count 4.27 M/mm3 (4.20-5.40); Red Cell Distribution Width 15.7 % (11.5-17.5); White Blood Count 8.5 K/mm3 (4.8-10.8)
[2023-09-16 15:39] LABS: Free T4 (Free Thyroxine) 1.19 ng/dl (0.78-2.19)
[2023-09-16 16:08] LABS: Alanine Aminotransferase 41 U/L (12-78); Albumin Level 4.2 g/dl (3.5-5.0); Anion Gap 16.1 mEq/L (5-15); Aspartate Amino Transferase 36 U/L (14-36); Bilirubin,Unconjugated 0.6 mg/dL (0.0-1.1); Blood Urea Nitrogen 35 mg/dl (7-17); Calcium 10.8 mg/dl (8.4-10.2); Carbon Dioxide 26 mmol/L (22.0-30.0); Chloride 103 mmol/L (98-107); Chol/HDL Ratio 4.6 (1-3.5); Cholesterol 189 mg/dl (140-200); Estimated Glomerular Filt Rate 38 ml/min (>60); GFR (African American) 46 ML/MIN (>60); Glucose 107 mg/dl (74-100); HDL Cholesterol 41 mg/dl (40-60); Potassium 4.1 mmoL/L (3.5-5.1); Sodium 141 mmol/L (136-145); Total Protein,Serum 7.7 g/dl (6.3-8.2); Triglycerides 222 mg/dl (30-150); VLDL Cholesterol 44 mg/dL (0-40)
[2023-09-16 16:39] LABS: Thyroid Stimulating Hormone 1.89 uIU/mL (0.465-4.68)
[2023-09-16 19:33] LABS: Alkaline Phosphatase 162 U/L (38-126); Bilirubin,Direct 0.2 mg/dl (0.0-0.4); Bilirubin,Indirect 0.4 mg/dL (0.0-0.9); Bilirubin,Total 0.6 mg/dl (0.2-1.3)
== END 2023-09-16 23:59 | disposition home or self-care (01) ==
PROVIDERS: PCP Pediatrics; Visit Provider Nurse Practitioner
DX: Z79.01 Long term (current) use of anticoagulants (principal); I48.91 Unspecified atrial fibrillation; N17.9 Acute kidney failure, unspecified; M48.10 Ankylosing hyperostosis [Forestier], site unspecified; I25.10 Atherosclerotic heart disease of native coronary artery without angina pectoris; R06.00 Dyspnea, unspecified; I51.89 Other ill-defined heart diseases; I50.33 Acute on chronic diastolic (congestive) heart failure; I71.21 Aneurysm of the ascending aorta, without rupture; I50.9 Heart failure, unspecified; I11.9 Hypertensive heart disease without heart failure; K21.9 Gastro-esophageal reflux disease without esophagitis; E11.9 Type 2 diabetes mellitus without complications; E66.01 Morbid (severe) obesity due to excess calories; Z68.36 Body mass index [BMI] 36.0-36.9, adult
CPT/HCPCS: 36415; 80048; 80061; 80076; 84439; 84443; 85025

== ENCOUNTER 2023-11-18 13:06 | Outpatient (CLI) | payer BC, MEDICARE, SELFPAY ==
[2023-11-18 14:07] LABS: Anion Gap 12.2 mEq/L (5-15); Blood Urea Nitrogen 32 mg/dl (7-17); Calcium 10.1 mg/dl (8.4-10.2); Carbon Dioxide 25 mmol/L (22.0-30.0); Chloride 109 mmol/L (98-107); Estimated Glomerular Filt Rate 46 ml/min (>60); GFR (African American) 55 ML/MIN (>60); Glucose 104 mg/dl (74-100); Potassium 4.2 mmoL/L (3.5-5.1); Sodium 142 mmol/L (136-145)
== END 2023-11-18 23:59 | disposition home or self-care (01) ==
LOC: LAB 13:07
PROVIDERS: PCP Pediatrics; Visit Provider Physician Assistant
DX: R06.02 Shortness of breath (principal); I11.0 Hypertensive heart disease with heart failure
CPT/HCPCS: 36415; 80048

== ENCOUNTER 2024-01-19 12:42 | Outpatient (CLI) | payer BC, MEDICARE, SELFPAY ==
[2024-01-19 13:28] LABS: Basophils # 0.1 K/mm3 (0-0.2); Basophils % 0.6 % (0.1-2.0); Eosinophils # 0.3 K/mm3 (0.0-0.4); Eosinophils % 3.2 % (0.1-12.0); Lymphocytes # 1.6 K/mm3 (0.7-4.5); Mean Corpuscular HGB Conc 31.6 g/dL (31.8-35.4); Mean Corpuscular Hemoglobin 27.6 pg (27.0-31.2); Mean Corpuscular Volume 87.3 fl (81-99); Mean Platelet Volume 7.7 fl (7.4-10.4); Monocytes # 0.6 K/mm3 (0.1-1.0); Monocytes % 7.2 % (1.7-9.3); Neutrophils # 5.4 K/mm3 (1.8-7.8); Platelet Count 266 K/mm3 (142-424); Red Blood Count 4.35 M/mm3 (4.20-5.40); Red Cell Distribution Width 15.7 % (11.5-17.5); White Blood Count 7.9 K/mm3 (4.8-10.8)
[2024-01-19 13:59] LABS: Albumin Level 4.1 g/dl (3.5-5.0); Chloride 108 mmol/L (98-107)
[2024-01-19 14:00] LABS: Potassium 4.1 mmoL/L (3.5-5.1); Sodium 140 mmol/L (136-145)
[2024-01-19 14:02] LABS: Alanine Aminotransferase 33 U/L (12-78); Anion Gap 11.1 mEq/L (5-15); Aspartate Amino Transferase 33 U/L (14-36); Bilirubin,Unconjugated 0.4 mg/dL (0.0-1.1); Blood Urea Nitrogen 26 mg/dl (7-17); Carbon Dioxide 25 mmol/L (22.0-30.0); Estimated Glomerular Filt Rate 38 ml/min (>60); GFR (African American) 46 ML/MIN (>60); Total Protein,Serum 7.1 g/dl (6.3-8.2)
[2024-01-19 14:03] LABS: Alkaline Phosphatase 130 U/L (38-126); Bilirubin,Direct 0.2 mg/dl (0.0-0.4); Bilirubin,Indirect 0.4 mg/dL (0.0-0.9); Bilirubin,Total 0.6 mg/dl (0.2-1.3); Calcium 9.9 mg/dl (8.4-10.2); Chol/HDL Ratio 4.4 (1-3.5); Cholesterol 171 mg/dl (140-200); Glucose 97 mg/dl (74-100); HDL Cholesterol 39 mg/dl (40-60); Magnesium 2.2 mg/dl (1.6-2.3); Triglycerides 191 mg/dl (30-150); VLDL Cholesterol 38 mg/dL (0-40)
[2024-01-19 14:21] LABS: Free T4 (Free Thyroxine) 1.16 ng/dl (0.78-2.19)
[2024-01-19 14:34] LABS: Thyroid Stimulating Hormone 2.19 uIU/mL (0.465-4.68)
== END 2024-01-19 23:59 | disposition home or self-care (01) ==
LOC: LAB 12:43
PROVIDERS: PCP Pediatrics; Visit Provider Nurse Practitioner
DX: I10 Essential (primary) hypertension (principal); I26.99 Other pulmonary embolism without acute cor pulmonale; I50.33 Acute on chronic diastolic (congestive) heart failure; I51.89 Other ill-defined heart diseases; E66.01 Morbid (severe) obesity due to excess calories; I25.10 Atherosclerotic heart disease of native coronary artery without angina pectoris; M48.10 Ankylosing hyperostosis [Forestier], site unspecified; N17.9 Acute kidney failure, unspecified; I48.91 Unspecified atrial fibrillation; Z79.01 Long term (current) use of anticoagulants; Z68.39 Body mass index [BMI] 39.0-39.9, adult
CPT/HCPCS: 36415; 80048; 80061; 80076; 83735; 84439; 84443; 85025

== ENCOUNTER 2024-04-19 14:09 | Outpatient (CLI) | payer BC, MEDICARE, SELFPAY ==
[2024-04-19 14:34] LABS: Basophils # 0.1 K/mm3 (0-0.2); Basophils % 0.5 % (0.1-2.0); Eosinophils # 0.3 K/mm3 (0.0-0.4); Eosinophils % 2.9 % (0.1-12.0); Hematocrit 39.9 % (37.0-47.0); Hemoglobin 13.5 g/dL (12.2-16.2); Lymphocytes # 1.5 K/mm3 (0.7-4.5); Lymphocytes % 16.6 % (10-50); Mean Corpuscular HGB Conc 33.8 g/dL (31.8-35.4); Mean Corpuscular Hemoglobin 27.6 pg (27.0-31.2); Mean Corpuscular Volume 81.9 fl (81-99); Mean Platelet Volume 7.6 fl (7.4-10.4); Monocytes # 0.7 K/mm3 (0.1-1.0); Monocytes % 7.2 % (1.7-9.3); Neutrophils # 6.6 K/mm3 (1.8-7.8); Neutrophils % 72.8 % (37.0-80.0); Platelet Count 228 K/mm3 (142-424); Red Blood Count 4.87 M/mm3 (4.20-5.40); Red Cell Distribution Width 16.3 % (11.5-17.5)
[2024-04-19 15:33] LABS: Albumin Level 4.3 g/dl (3.5-5.0); Chloride 108 mmol/L (98-107); Potassium 4.3 mmoL/L (3.5-5.1); Sodium 136 mmol/L (136-145)
[2024-04-19 15:35] LABS: Blood Urea Nitrogen 23 mg/dl (7-17); Estimated Glomerular Filt Rate 42 ml/min (>60); GFR (African American) 50 ML/MIN (>60)
[2024-04-19 15:36] LABS: Alanine Aminotransferase 30 U/L (12-78); Alkaline Phosphatase 177 U/L (38-126); Anion Gap 7.3 mEq/L (5-15); Aspartate Amino Transferase 35 U/L (14-36); Bilirubin,Direct 0.3 mg/dl (0.0-0.4); Bilirubin,Indirect 0.4 mg/dL (0.0-0.9); Bilirubin,Total 0.7 mg/dl (0.2-1.3); Bilirubin,Unconjugated 0.3 mg/dL (0.0-1.1); Calcium 10.2 mg/dl (8.4-10.2); Carbon Dioxide 25 mmol/L (22.0-30.0); Cholesterol 153 mg/dl (140-200); Glucose 95 mg/dl (74-100); Total Protein,Serum 7.2 g/dl (6.3-8.2); Triglycerides 140 mg/dl (30-150); VLDL Cholesterol 28 mg/dL (0-40)
[2024-04-19 15:37] LABS: Chol/HDL Ratio 3.4 (1-3.5); HDL Cholesterol 45 mg/dl (40-60)
[2024-04-19 15:47] LABS: Direct LDL Cholesterol 70.75 mg/dL (100-129)
[2024-04-19 15:51] LABS: Free T4 (Free Thyroxine) 1.29 ng/dl (0.78-2.19)
[2024-04-19 16:07] LABS: Thyroid Stimulating Hormone 2.55 uIU/mL (0.465-4.68)
[2024-04-22 00:07] LABS: Metanephrine Plasma 30.5 pg/mL (0.0-88.0); Normetanephrine Plasma 77.8 pg/mL (0.0-285.2)
[2024-04-22 09:15] LABS: Dopamine, Plasma < 30 pg/mL (0-48); Epinephrine, Plasma 39 pg/mL (0-62); Norepinephrine, Plasma 436 pg/mL (0-874)
== END 2024-04-19 23:59 | disposition home or self-care (01) ==
LOC: LAB 14:10
PROVIDERS: PCP Pediatrics; Visit Provider Internal Medicine
DX: R60.1 Generalized edema (principal); Z79.01 Long term (current) use of anticoagulants; I48.91 Unspecified atrial fibrillation; N17.9 Acute kidney failure, unspecified; I25.10 Atherosclerotic heart disease of native coronary artery without angina pectoris; E66.813 Obesity, class 3; I51.89 Other ill-defined heart diseases; I71.21 Aneurysm of the ascending aorta, without rupture; I50.33 Acute on chronic diastolic (congestive) heart failure; I26.99 Other pulmonary embolism without acute cor pulmonale; I10 Essential (primary) hypertension
CPT/HCPCS: 36415; 80048; 80061; 80076; 82088; 82384; 83735; 83835; 84439; 84443; 85025

== ENCOUNTER 2024-04-29 07:34 | Outpatient (CLI) | payer BC, MEDICARE, SELFPAY ==
--- NOTE | 2024-04-29 07:39 | CA_ITS ---
FINAL REPORT TECHNIQUE: Ultrasound images of the kidneys were obtained. Duplex Doppler of the renal arteries, RAR and RI also obtained. Spectral analysis was performed. CLINICAL HISTORY: HTN, shortness of breath, Obesity COMPARISON: None FINDINGS: Aortic velocity is measured at 69 cm/sec. The right kidney measures 12.4 cm in length. No hydronephrosis, cortical thinning, or mass. RAR is 0.53-0.59. Peak systolic velocity is 84 cm/sec. RI is 1.22. No evidence of renal artery stenosis or chronic renal disease. The left kidney measures 13.2 cm in length. No hydronephrosis, cortical thinning, or mass. RAR is 0.61-0.68. Peak systolic velocity is 73 cm/sec. RI is 1.06. No evidence of renal artery stenosis or chronic renal disease. IMPRESSION: Normal renal ultrasound. Normal RI bilaterally. Reviewed, Interpreted and Dictated by Shahid Laura MD Transcribed by Leandra Avery Authenticated and [facility]
== END 2024-04-29 23:59 | disposition home or self-care (01) ==
LOC: RT 07:35
PROVIDERS: PCP Pediatrics; Visit Provider Internal Medicine
DX: I10 Essential (primary) hypertension (principal)
CPT/HCPCS: 93976

== ENCOUNTER 2024-07-07 14:39 | Outpatient (CLI) | payer BC, OTHER, SELFPAY ==
[2024-07-07 16:52] LABS: Chloride 110 mmol/L (98-107); Potassium 4.5 mmoL/L (3.5-5.1); Sodium 141 mmol/L (136-145)
[2024-07-07 16:54] LABS: Blood Urea Nitrogen 23 mg/dl (7-17); Estimated Glomerular Filt Rate 46 ml/min (>60); GFR (African American) 55 ML/MIN (>60)
[2024-07-07 16:55] LABS: Anion Gap 14.5 mEq/L (5-15); Calcium 10.4 mg/dl (8.4-10.2); Carbon Dioxide 21 mmol/L (22.0-30.0); Glucose 90 mg/dl (74-100)
== END 2024-07-07 23:59 | disposition home or self-care (01) ==
LOC: LAB 14:41
PROVIDERS: PCP Pediatrics; Visit Provider Internal Medicine
DX: N17.9 Acute kidney failure, unspecified (principal); I25.10 Atherosclerotic heart disease of native coronary artery without angina pectoris; M48.10 Ankylosing hyperostosis [Forestier], site unspecified; I51.89 Other ill-defined heart diseases; I48.91 Unspecified atrial fibrillation; R60.1 Generalized edema; R06.83 Snoring; E66.813 Obesity, class 3; Z79.01 Long term (current) use of anticoagulants; Z68.43 Body mass index [BMI] 50.0-59.9, adult
CPT/HCPCS: 36415; 80048

== ENCOUNTER 2024-07-13 13:44 | Outpatient (CLI) | payer BC, MEDICARE, SELFPAY ==
[2024-07-13 16:10] LABS: Chloride 104 mmol/L (98-107); Potassium 4.1 mmoL/L (3.5-5.1); Sodium 137 mmol/L (136-145)
[2024-07-13 16:13] LABS: Anion Gap 11.1 mEq/L (5-15); Blood Urea Nitrogen 19 mg/dl (7-17); Calcium 10.1 mg/dl (8.4-10.2); Carbon Dioxide 26 mmol/L (22.0-30.0); Estimated Glomerular Filt Rate 46 ml/min (>60); GFR (African American) 55 ML/MIN (>60); Glucose 97 mg/dl (74-100)
[2024-07-13 16:14] LABS: Magnesium 1.9 mg/dl (1.6-2.3)
== END 2024-07-13 23:59 | disposition home or self-care (01) ==
LOC: LAB 13:46
PROVIDERS: PCP Pediatrics; Visit Provider Internal Medicine
DX: I10 Essential (primary) hypertension (principal)
CPT/HCPCS: 36415; 80048; 83735

== ENCOUNTER 2024-08-26 15:46 | Emergency (ER) | payer BC, MEDICARE, SELFPAY ==
[2024-08-26] VITALS (9 sets, daily range): BP systolic 153–194; BP diastolic 102–163; PULSE 69–93; RESP 13–21; TEMP 36.7–37.1; O2SAT 90–100; BMI 35.5
--- NOTE | 2024-08-26 15:49 | PC.NURSE ---
Chirag Youngblood got a FSBS and it was 105
--- NOTE | 2024-08-26 15:50 | ECG_ITS ---
APPROVED REPORT Exam: Resting ECG HR:68 bpm ECG Measurements Heart Rate 68 AXES QRSd 98 QRS 27 QT 394 T 40 QTc 412 Conclusion ATRIAL FIBRILLATION ABNORMAL RHYTHM ECG UNCONFIRMED REPORT Electronically signed by : Raúl Garcia, 08/26/2024 22:57:00
--- NOTE | 2024-08-26 16:03 | PC.NURSE ---
Dr Garcia came out from the Pts room and asked that we stroke alert
--- NOTE | 2024-08-26 16:05 | HMH.EDGENADL ---
Discharge Plan Disposition Patient Disposition: Xfer Other Chief Complaint: Weakness Prescriptions Prescriptions: No Action valsartan-hydrochlorothiazide 320-25 mg tablet 1 tab PO DAILY Qty: 30 5RF amlodipine [Norvasc] 5 mg tablet 5 mg PO DAILY Qty: 30 2RF oxybutynin chloride 10 mg tablet extended release 24hr PO Patient Comments: TAKE ONE TABLET BY MOUTH EVERY DAY spironolactone 50 mg tablet 50 mg PO DAILY Qty: 90 3RF carvedilol 25 mg tablet 25 mg PO BIDWMEAL Qty: 60 5RF Xarelto 15 mg tablet 15 mg PO DAILY 30 Days Qty: 30 5RF atorvastatin 80 mg tablet 80 mg PO DAILY Qty: 90 3RF clopidogrel 75 mg tablet 75 mg PO DAILY Qty: 90 3RF Jardiance 10 mg tablet 10 mg PO DAILY Qty: 30 2RF Referrals Follow up/Referrals: Andrez Avila [Primary Care Provider] - See instructions Clinical Impressions Clinical Impression: Acute CVA (cerebrovascular accident) Stand Alone Forms Stand Alone Forms: Transfer Record - ED Print Language Print Language: Belgian Discharge ED Provider: Simone Garcia General Adult HPI General Chief complaint: Weakness Stated complaint: Numbness to Rt upper Extremity Time Seen by Provider: 08/26/24 15:57 Mode of Arrival: EMS Source of Information: Patient and EMS Description of Symptoms (Recalled from ER Triage Doc. by RN): Pt presents via [facility] ems from with with c/o sudden onset or RUE numbness at 1450. Pt states the numbness is in her right forearm to her wrist. Pt states sensation is intact now. Pt is a gcs 15, bgl 105, ekg showed a-fib for ems pt does not have a hx of a-rib. 18G RAC History of Present Illness HPI narrative: Patient is a 64-year-old female presented with multiple complaints. She is a very poor historian however initially she told EMS that she was having right upper extremity numbness which she does tell me. She states it went from her shoulder down to her hand but is worse in her distal forearm. She states that those symptoms have significantly improved but are still present. She also tells me that her arm felt very heavy and she was having a hard time moving it that has improved but she also tells me when I was asking her about symptoms elsewhere she did not initially state that she was having right lower extremity weakness but upon review of systems she said that that leg felt very weak and heavy as well. EMS had a hard time standing or she states she normally walks with a rollator but cannot now because of the weakness. She states that this is new and started all at the same time as her other symptoms which was about 2:50 PM. Denies any other symptoms states her speech is normal. Denies any changes in coordination vision or other neurologic symptoms at the moment. Related Data Home Medications ?Medication ?Instructions ?Recorded ?Confirmed oxybutynin chloride 10 mg mg PO 01/19/24 08/12/24 tablet,extended release 24 hr Previous Rx's ?Medication ?Instructions ?Recorded rivaroxaban 15 mg tablet (Xarelto) 15 mg PO DAILY 30 days #30 tabs 06/17/24 atorvastatin 80 mg tablet 80 mg PO DAILY #90 tabs 06/18/24 clopidogrel 75 mg tablet 75 mg PO DAILY #90 tabs 06/18/24 empagliflozin 10 mg tablet 10 mg PO DAILY #30 tabs 06/18/24 (Jardiance) valsartan 320 1 tab PO DAILY #30 tabs 07/07/24 mg-hydrochlorothiazide 25 mg tablet carvedilol 25 mg tablet 25 mg PO BIDWMEAL #60 tabs 07/13/24 spironolactone 50 mg tablet 50 mg PO DAILY #90 tabs 07/13/24 amlodipine 5 mg tablet (Norvasc) 5 mg PO DAILY #30 tabs 08/12/24 Allergies Allergy/AdvReac Type Severity Reaction Status Date / Time No Known Drug Allergies Allergy Verified 07/13/24 13:12 [facility] Disclaimer: The information contained in this section may have been updated after the patient was seen, as this information can be updated by other users. Medical History Snoring Edema Abnormal finding on echocardiogram Chronic anticoagulation Atrial fibrillation, new onset DISH (diffuse idiopathic skeletal hyperostosis) CAD in [place] artery Diastolic dysfunction Atypical angina Diastolic dysfunction Thoracic aneurysm without mention of rupture Coronary artery calcification seen on CT scan (HFpEF) heart failure with preserved ejection fraction Shortness of Breath Anxiety Osteoarthritis HLD (hyperlipidemia) HTN (hypertension) Surgical History History of laparoscopic appendectomy H/O total hysterectomy Hx of total knee arthroplasty LEFT Family History Other No significant family history Social History Smoking Status: Never smoker alcohol intake: never current occupational status: disabled Travel in the last 8 weeks: None Have you lived/traveled outside US in past 30 days?: No Contact w/someone who lives/traveled outside US past 30 days?: No Exposure to someone with infectious disease in past 14 days?: No Do you have a fever (greater than 100.4 F or 38 C)?: No Have you tested positive for COVID-19: No Exposed to someone with COVID-19 in past 14 days?: No Do you have a sore throat?: No Do you have a cough?: No Do you have any weakness?: No Do you have any diarrhea?: No Are you experiencing any unusual bleeding?: No Do you have any muscle aches/pain?: No Do you have any abdominal pain?: No Are you experiencing loss of taste or smell?: No Other Medical History Have you received the Flu Vaccine for this season: No Have you received the Pneumonia Vaccine: No ROS Obtained: Yes All systems reviewed & no additional complaints except as documented Physical Exam General General appearance: alert and in no apparent distress Respiratory Respiratory exam: Present normal lung sounds bilaterally Cardiovascular Cardiovascular exam: Present regular rate Neurological Exam Neurological exam: Present alert, oriented X3 and motor sensory deficit (Right upper and right lower extremity weakness 4-5 throughout limited sensation right upper extremity otherwise normal neurologic exam speaking normally) Medical Decision Making Medical Records Screening: Per USPSTF and CDC recommendations, given the prevalence of disease in our region, it is our hospital?s policy to screen for HIV and viral Hepatitis for all patients aged 18 and over and those with ongoing risk factors. Chris Inquiry Pt receiving controlled substance: No Vital Signs: 08/26/24 15:51 08/26/24 15:55 08/26/24 16:01 Temperature 98.1 F Temperature Source Oral Pulse Rate 69 85 Pulse Rate [Right] 75 Respiratory Rate 18 Blood Pressure 170/122 H 186/140 H Blood Pressure [Right Arm] 170/102 H Blood Pressure Mean [Right Arm] 124 Blood Pressure Source [Right Arm] Automatic Cuff Blood Pressure Position [Right Arm] Sitting 02 Sat by Pulse Oximetry 90 L 100 93 L 08/26/24 16:19 08/26/24 16:30 Temperature Temperature Source Pulse Rate 86 92 H Pulse Rate [Right] Respiratory Rate 14 13 Blood Pressure 172/129 H 153/112 H Blood Pressure [Right Arm] Blood Pressure Mean [Right Arm] Blood Pressure Source [Right Arm] Blood Pressure Position [Right Arm] 02 Sat by Pulse Oximetry 95 94 L Lab Data Lab results reviewed: Yes I reviewed the patient's lab results. Lab Results 08/26/24 16:00: WBC 8.2, RBC 4.93, Hgb 13.4, Hct 42.1, MCV 85.4, MCH 27.2, MCHC 31.8, RDW 16.6, Plt Count 270, MPV 9.5, Neut % (Auto) 68.8, Lymph % (Auto) 17.7, [place] % (Auto) 9.4 H, Eos % (Auto) 3.2, Baso % (Auto) 0.5, Neut # (Auto) 5.6, Lymph # (Auto) 1.5, [place] # (Auto) 0.8, Eos # (Auto) 0.3, Baso # (Auto) 0.0, PT 10.8, INR 0.96, APTT 25.9, Sodium 142, Potassium 4.7, Chloride 108 H, Carbon Dioxide 28, Anion Gap 10.7, BUN 23 H, Creatinine 1.30 H, Estimated Creat Clear 70, Estimated GFR 41 L, Est GFR ( Amer) 50 L, Glucose 104 H, Calcium 10.0, Total Bilirubin 0.6, AST 31, ALT 30, Alkaline Phosphatase 174 H, Troponin I < 0.01, Total Protein 8.2, Albumin 4.1, Globulin 4.1 H, Albumin/Globulin Ratio 1.0 L, Triglycerides 213 H, Cholesterol 231 H, LDL Cholesterol Direct 128.01, VLDL Cholesterol 43 H, HDL Cholesterol 41, Cholesterol/HDL Ratio 5.6 H, Plasma/Serum Alcohol < 10 08/26/24 17:09: POC Glucose 95 08/26/24 16:00 08/26/24 16:00 Orders (Tests/Meds): ED MEDICATIONS Generic Name Dose Route Start Last Admin Trade Name Freq PRN Reason Stop Dose Admin Sodium Chloride 10 ml 08/26/24 16:07 Sodium Chloride 0.9% 10ml Flush Syringe IV 09/25/24 16:06 NEEDED PRN Maintain IV Site Discontinued Medications Generic Name Dose Route Start Last Admin Trade Name Val PRN Reason Stop Dose Admin Lactated Ringer's 1,000 mls @ 999 mls/hr 08/26/24 16:07 08/26/24 16:14 Lactated Ringer's 1000 Ml Bag IV 08/26/24 17:07 999 mls/hr .Q1H1M ONE Administration Iopamidol 80 ml 08/26/24 16:14 08/26/24 16:17 Iopamidol-370 (76%);100ml Bottle IV 08/26/24 16:15 80 ml ONCE ONE Administration Sodium Chloride 40 ml 08/26/24 16:14 08/26/24 16:16 0.9 % Sodium Chloride 50 Ml Vial IV 08/26/24 16:15 40 ml ONCE ONE Administration Sodium Chloride 10 ml 08/26/24 16:14 08/26/24 16:17 Sodium Chloride 0.9% 10ml Syr (Rad Only) IV 08/26/24 16:15 10 ml ONCE ONE Administration ORDERS Category Date Time Status CT angio head Stat Cat Scan 08/26/24 16:[address] angio neck Stat Cat Scan 08/26/24 16:[address] head/brain wo con Stat Cat Scan 08/26/24 16:07 Completed POCUS Point of Care (ER Only) Stat Exams 08/26/24 17:19 Ordered XR chest portable Stat Exams 08/26/24 16:07 Completed Activated Partial Thrombo Time Stat Lab 08/26/24 16:00 Completed Complete Blood Count Auto Diff Stat Lab 08/26/24 16:00 Completed Comprehensive Metabolic Panel Stat Lab 08/26/24 16:00 Completed Drug Screen,Urine Stat Lab 08/26/24 16:07 Ordered Ethyl Alcohol Stat Lab 08/26/24 16:00 Completed Lipid Panel Stat Lab 08/26/24 16:00 Completed POC Glucose,Bedside Routine Lab 08/26/24 17:09 Completed Prothrombin Time INR Stat Lab 08/26/24 16:00 Completed Troponin I Q3H Lab 08/26/24 19:15 Ordered Troponin I Q3H Lab 08/26/24 22:15 Ordered Troponin I Stat Lab 08/26/24 16:00 Completed Urinalysis and Microscopic Stat Lab 08/26/24 16:07 Ordered Medical Decision Narrative: 64-year-old presents today with right upper and right lower extremity weakness and numbness. NIH stroke score initially is 3. Symptoms very mild initially. CT scans performed I personally interpreted patient with stroke alerted. No intracranial hemorrhage noted. 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 No acute abnormalities in the brain itself. There is however evidence of a basilar thrombus which is best seen on image 315 on series 7. However she has no posterior circulation abnormalities initially. Initially the patient refused to be transferred to a stroke center her symptoms were very mild and I was going to admit the patient here however around 5:20 PM patient had a dramatic and sudden change in her presentation. She was all of a sudden having a very difficult time speaking still was not aphasic she was able to articulate herself and understand but just had slurred speech and had dense paralysis of her left upper and left lower extremity. On serial assessments her left lower extremity regained function about 20 minutes later she still at the moment at 5:30 PM has dense paralysis in her left upper extremity. Given the fact that she had a basal artery thrombus and has a known history of left ventricular large meant in heart failure I am concerned that she may have an LV thrombus that is shedding emboli. Patient is on Xarelto and Plavix from historical standpoint is known history of atrial fibrillation she states that the last time she took this medication was last night. Therefore she is not a thrombolytic candidate. As I spoke with Aurelia the dining room coordinator at [facility] and we discussed whether or not repeat imaging would be beneficial and we did not want this to delay transfer. Unfortunately due to the weather to helicopter systems that we have called are not flying and patient be transferred by ground. I did do a bedside ultrasound and saw no evidence of an LV thrombus definitively. Patient symptoms are again improving but she still has dense paralysis of her left upper extremity and dysarthria upon being transferred. Blood pressures 180 systolic we will allow permissive hypertension head of bed will be flap to allow for perfusion. No other interventions given in the emergency department. Patient was accepted by Dr. Whipple to the ICU at [facility]. Procedures Miscellaneous Procedure Procedure Performed: Limited cardiac ultrasound Indication: The concern for LV thrombus in the setting of possible embolic phenomenon with multifocal strokes Identified structures: The heart was visualized in the parasternal long axis, parastenal short axis, apical four chamber and subxyphiod views. The IVC was visualized in the short axis and long axis at its entry into the right atrium. Findings: Normal LVEF no significant right heart strain no pericardial effusion specifically no evidence definitively of obvious LV ballooning or LV thrombus Impression: No evidence of LV thrombus or any other acute definitive abnormality Images were saved to permanent archive The study was technically adequate CPT: 09726-88 This study was performed by me, and I personally interpreted all images/videos. Based on my clinical judgement, these images were adequate and did not necessitate further imaging. Critical Care Critical Care Time Critical Care Time: Yes Attestation: On 08/26/24, the high probability of a clinically significant, sudden or life threatening deterioration of the following system(s) required my full and direct attention, intervention and personal management. The time I documented below is in addition to time spent performing reported procedures but includes the following listed in this critical care notation. Total Time Total Critical Care Time: 65
--- NOTE | 2024-08-26 16:07 | CT_ITS ---
PROCEDURE INFORMATION: Exam: CT Head Without Contrast Exam date and time: 08/26/2024 4:10 PM Age: 64 years old Clinical indication: Stroke-like symptoms; RT upper extremity and RT lower extremity weakness; Additional info: Possible stroke- rue/rle weakenss/numbess lkn [id number] TECHNIQUE: Imaging protocol: Computed tomography of the head without contrast. Radiation optimization: All CT scans at this facility use at least one of these dose optimization techniques: automated exposure control; mA and/or kV adjustment per patient size (includes targeted exams where dose is matched to clinical indication); or iterative reconstruction. Other technique: STROKE PROTOCOL was implemented. COMPARISON: No relevant prior studies available. FINDINGS: Brain: There is moderate atrophy and chronic white matter microangiopathic changes. There is no evidence of intracranial hemorrhage. Cerebral ventricles: There is compensatory ventricular dilation. There is asymmetric dilatation of the right temporal horn. Paranasal sinuses: Visualized sinuses are unremarkable. No fluid levels. Mastoid air cells: Visualized mastoid air cells are well aerated. Bones: Chronic appearing calvarial abnormalities possibly reflecting changes associated with treatment of cranio stenosis. History has not been provided. Soft tissues: Unremarkable. Vasculature: The vasculature demonstrates diffuse moderate atherosclerotic calcification. IMPRESSION: 1. Chronic appearing calvarial abnormalities possibly reflecting changes associated with treatment of cranio stenosis. History has not been provided. 2. There is compensatory ventricular dilation. There is asymmetric dilatation of the right temporal horn. 3. No acute intracranial process is identified. 4. There is no evidence of intracranial hemorrhage. ASSESSMENT: ASPECTS ([place] Stroke Program Early CT Score) is 10.
--- NOTE | 2024-08-26 16:07 | CT_ITS ---
PROCEDURE INFORMATION: Exam: CTA Neck With Contrast Exam date and time: 08/26/2024 4:13 PM Age: 64 years old Clinical indication: Stroke-like symptoms; RT upper extremity and RT lower extremity weakness; Additional info: Possible stroke- rue/rle weakenss/numbess lkn 250p TECHNIQUE: Imaging protocol: Computed tomographic angiography of the neck with contrast. Exam focused on the cervical segments of the vasculature. 3D rendering (Not supervised by radiologist): MIP and/or 3D reconstructed images were created by the technologist. Radiation optimization: All CT scans at this facility use at least one of these dose optimization techniques: automated exposure control; mA and/or kV adjustment per patient size (includes targeted exams where dose is matched to clinical indication); or iterative reconstruction. Contrast material: ISOVUE; Contrast volume: 80 ml; Contrast route: INTRAVENOUS (IV); COMPARISON: CT ANGIO CHEST PE PROTOCOL 08/21/2023 9:41 AM FINDINGS: Right common carotid artery: No stenosis. No dissection or occlusion. Right internal carotid artery: There is mild calcification of the right internal carotid origin with less than 50% compromise of the lumen. Right external carotid artery: No occlusion or stenosis of the origin. Left common carotid artery: No stenosis. No dissection or occlusion. Left internal carotid artery: There is mild calcification of the left internal carotid origin with less than 50% compromise of the lumen. Left external carotid artery: No occlusion or stenosis of the origin. Right vertebral artery: There is a dominant right vertebral artery with no evidence of dissection or stenosis. Left vertebral artery: There is a non dominant left vertebral artery with no evidence of dissection or stenosis. Thyroid: Several thyroid nodules are less than 1 cm in diameter with no follow up recommended. Lymph nodes: There are multiple small calcified lymph nodes in the mediastinum, consistent with remote granulomatous organism exposure. Soft tissues: Normal. No significant soft tissue swelling. Bones/joints: The spine demonstrates moderate degenerative changes at multiple levels. Lungs: The visualized portions of the lung apices are normal. IMPRESSION: 1. Several thyroid nodules are less than 1 cm in diameter with no follow up recommended. 2. There is mild calcification of the right internal carotid origin with less than 50% compromise of the lumen. 3. There is mild calcification of the left internal carotid origin with less than 50% compromise of the lumen. 4. There is a dominant right vertebral artery with no evidence of dissection or stenosis. 5. There is a non dominant left vertebral artery with no evidence of dissection or stenosis. COMMENTS: Consistent with the [employer]'s Incidental Findings Committee white paper (J Am Genie Radiol 2015): In patients aged 35 years and older with an incidental thyroid nodule equal to or greater than 1.[address], MRI or extrathyroidal US, further evaluation with dedicated thyroid US is recommended for patients with normal life expectancy and without comorbidities. For smaller nodules without suspicious features, no further evaluation or follow up is recommended. REFERENCES: NASCET CRITERIA. The degree of stenosis in the cervical segment of the internal carotid artery is based on NASCET criteria. Normal is no stenosis. Mild is less than 50% stenosis. Moderate is 50-69% stenosis. Severe is 70% to 99% stenosis. Total occlusion is no detectable patent lumen.
--- NOTE | 2024-08-26 16:07 | CT_ITS ---
PROCEDURE INFORMATION: Exam: CTA Head With Contrast, Arteriography Exam date and time: 08/26/2024 4:13 PM Age: 64 years old Clinical indication: Stroke-like symptoms; RT upper extremity and RT lower extremity weakness; Additional info: Possible stroke- rue/rle weakenss/numbess lkn 250p TECHNIQUE: Imaging protocol: Computed tomographic angiography of the head with contrast. Exam focused on the arteries. 3D rendering (Not supervised by radiologist): MIP and/or 3D reconstructed images were created by the technologist. Radiation optimization: All CT scans at this facility use at least one of these dose optimization techniques: automated exposure control; mA and/or kV adjustment per patient size (includes targeted exams where dose is matched to clinical indication); or iterative reconstruction. Contrast material: ISOVUE; Contrast volume: 80 ml; Contrast route: INTRAVENOUS (IV); COMPARISON: CT HEAD/BRAIN WO CON 08/26/2024 4:10 PM FINDINGS: ANTERIOR CIRCULATION: Right internal carotid artery: There is dolichoectasia of the distal right internal carotid artery reaching a diameter of 9 mm. Right middle cerebral artery: No occlusion or significant stenosis. No aneurysm. Right anterior cerebral artery: No occlusion or significant stenosis. No aneurysm. Left internal carotid artery: Intracranial segment is patent with no significant stenosis. No aneurysm. Left middle cerebral artery: No occlusion or significant stenosis. No aneurysm. Left anterior cerebral artery: No occlusion or significant stenosis. No aneurysm. POSTERIOR CIRCULATION: Right vertebral artery: No occlusion or significant stenosis. No aneurysm. Left vertebral artery: No occlusion or significant stenosis. No aneurysm. 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 Right posterior cerebral artery: There is origin of the right posterior cerebral artery. Left posterior cerebral artery: There is origin of the left posterior cerebral artery. Brain: There is no evidence of intracranial large vessel stenosis or occlusion. Cerebral ventricles: No ventriculomegaly. Bones/joints: Unremarkable. No acute fracture. Soft tissues: Unremarkable. IMPRESSION: 1. 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 2. There is origin of the right posterior cerebral artery. 3. There is origin of the left posterior cerebral artery. 4. There is dolichoectasia of the distal right internal carotid artery reaching a diameter of 9 mm. 5. There is no evidence of intracranial large vessel stenosis or occlusion.
--- NOTE | 2024-08-26 16:07 | XR_ITS ---
PROCEDURE INFORMATION: Exam: XR Chest Exam date and time: 08/26/2024 4:22 PM Age: 64 years old Clinical indication: Other: Possible stroke TECHNIQUE: Imaging protocol: Radiologic exam of the chest. Views: 1 view. COMPARISON: CT ANGIO CHEST PE PROTOCOL 08/21/2023 9:41 AM FINDINGS: Lungs: Unremarkable. No consolidation. Pleural spaces: Unremarkable. No pleural effusion. No pneumothorax. Heart/Mediastinum: The heart demonstrates mild diffuse enlargement. Bones/joints: Moderate degenerative changes are seen in both shoulders. IMPRESSION: No evidence of an acute chest abnormality.
[2024-08-26 16:14] LABS: Basophils % 0.5 % (0.1-2.0); Eosinophils # 0.3 Kmm3 (0.0-0.4); Eosinophils % 3.2 % (0.1-12.0); Hematocrit 42.1 % (37.0-47.0); Hemoglobin 13.4 g/dL (12.2-16.2); Lymphocytes # 1.5 K/mm3 (0.7-4.5); Lymphocytes % 17.7 % (10-50); Mean Corpuscular HGB Conc 31.8 g/dL (31.8-35.4); Mean Corpuscular Hemoglobin 27.2 pg (27.0-31.2); Mean Corpuscular Volume 85.4 fl (81-99); Mean Platelet Volume 9.5 fl (7.4-10.4); Monocytes # 0.8 K/mm3 (0.1-1.0); Monocytes % 9.4 % (1.7-9.3); Neutrophils # 5.6 K/mm3 (1.8-7.8); Neutrophils % 68.8 % (37.0-80.0); Nucleated Red Blood Cells # 0 10^3/uL; Nucleated Red Blood Cells % 0 %; Platelet Count 270 K/mm3 (142-424); Red Blood Count 4.93 M/mm3 (4.20-5.40); Red Cell Distribution Width 16.6 % (11.5-17.5); Red Cell Distribution Width-SD 51.4 fL; White Blood Count 8.2 K/mm3 (4.8-10.8)
[2024-08-26] MEDS: LACTATED RINGERS 1000ML 1,000 ML 999 ML IV (16:14)
[2024-08-26 16:16] LABS: Albumin Level 4.1 g/dl (3.5-5.0); Chloride 108 mmol/L (98-107)
[2024-08-26] MEDS: 0.9 % SODIUM CHLORIDE 50 ML VIAL 40 ML IV (16:16)
[2024-08-26 16:17] LABS: Potassium 4.7 mmoL/L (3.5-5.1); Sodium 142 mmol/L (136-145)
[2024-08-26] MEDS: SODIUM CHLORIDE 0.9% 10ML SYR (RAD ONLY) 10 ML IV (16:17)
[2024-08-26] MEDS: IOPAMIDOL-370 (76%);100ML BOTTLE 80 ML IV (16:17)
[2024-08-26 16:19] LABS: Alanine Aminotransferase 30 U/L (12-78); Anion Gap 10.7 mEq/L (5-15); Aspartate Amino Transferase 31 U/L (14-36); Blood Urea Nitrogen 23 mg/dl (7-17); Carbon Dioxide 28 mmol/L (22.0-30.0); Creatinine Clearance Estimated 70 mL/min (50-200); Estimated Glomerular Filt Rate 41 ml/min (>60); GFR (African American) 50 ML/MIN (>60)
[2024-08-26 16:20] LABS: Alkaline Phosphatase 174 U/L (38-126); Bilirubin,Total 0.6 mg/dl (0.2-1.3); Cholesterol 231 mg/dl (140-200); Globulin 4.1 g/dL (1.3-3.2); Glucose 104 mg/dl (74-100); Total Protein,Serum 8.2 g/dl (6.3-8.2); Triglycerides 213 mg/dl (30-150); VLDL Cholesterol 43 mg/dL (0-40)
[2024-08-26 16:21] LABS: Activated Partial Thrombo Time 25.9 seconds (22.8-30.6); Ethyl Alcohol < 10 mg/dl (0-10); INR 0.96 (0.9-1.1); Prothrombin Time 10.8 seconds (10.1-12.5)
[2024-08-26 16:31] LABS: Direct LDL Cholesterol 128.01 mg/dL (100-129)
--- NOTE | 2024-08-26 16:35 | PC.NURSE ---
Called [facility] and had images powershared to them
[2024-08-26 16:37] LABS: Troponin I < 0.01 ng/ml (0.00-0.034)
--- NOTE | 2024-08-26 16:42 | PC.NURSE ---
Called [facility] per Dr Garcia to speak with there stroke care. while waiting for them to connect us Dr Garcia came out and advised that the pt did not want to be transferred and that we could end the call
--- NOTE | 2024-08-26 17:09 | PC.NURSE ---
1704 Pt fails dysphagia screening. Pt now slurring her speech, and unable to move left side of body NIH now 13
--- NOTE | 2024-08-26 17:10 | PC.NURSE ---
Called [facility] back about this pt. for her stroke symptoms were worse. While on the phone [facility] they connected us with Aurelia the stroke person at [facility]
--- NOTE | 2024-08-26 17:11 | PC.NURSE ---
called [employer] to check flight
--- NOTE | 2024-08-26 17:11 | PC.NURSE ---
additional iv access being obtained
--- NOTE | 2024-08-26 17:14 | PC.NURSE ---
manual pressure to lue 194/134
[2024-08-26 17:15] LABS: POC Glucose,Bedside 95 (70-110)
[2024-08-26 17:16] LABS: Chol/HDL Ratio 5.6 (1-3.5); HDL Cholesterol 41 mg/dl (40-60)
--- NOTE | 2024-08-26 17:21 | PC.NURSE ---
Jose SKELTON to bedside to perform bedside cardiac ultrasound
--- NOTE | 2024-08-26 17:56 | PC.NURSE ---
This RN attempted to call report to [facility] [phone]. Was on hold for 10 minutes. [id number] Care handoff report completed with [facility] Olivia STARKS. Monique Hinds RN hanging heparin drip.
[2024-08-26] MEDS: HEPARIN SODIUM,PORCINE/D5W 500 ML 20 UNIT IV (18:02)
--- NOTE | 2024-08-26 18:03 | PC.NURSE ---
i spoke with pharmacist senior information security analyst regarding heparin consult. new orders received .
--- NOTE | 2024-08-26 18:04 | PC.NURSE ---
Pt transferred to EMS stretcher.
[2024-08-26 18:34] LABS: PTT Heparin (inpatient only) 26.6 Seconds (50-75)
== END 2024-08-26 18:06 | disposition other institution (70) ==
PROVIDERS: Emergency Provider Student in an Organized Health Care Education/Training Program; PCP Pediatrics
DX: I63.9 Cerebral infarction, unspecified (principal); R29.703 NIHSS score 3; I10 Essential (primary) hypertension; Z79.01 Long term (current) use of anticoagulants
CPT/HCPCS: 70450; 70496; 70498; 71045; 80053; 80061; 80320; 82962; 84484; 85025; 85610; 85730; 93005; 96361; 96374; 99291; J1644; J7120; Q9967